=== PATIENT | female | born 1935 | race Caucasian/White ===

== ENCOUNTER 2017-03-09 02:31 | Inpatient (IN) | payer MEDICARE, OTHER ==
[~2017-03-09] VITALS: Ht 149.9 cm; Wt 35.0 kg
[2017-03-09] MEDS ORDERED: LISI40TAB PO (02:48)
[2017-03-09] MEDS ORDERED: ALBU17IN PO (02:48)
[2017-03-09] MEDS ORDERED: BISO5TAB5 PO (02:48)
[2017-03-09] MEDS ORDERED: SPIR1CAP INH (02:48)
[2017-03-09 02:49] LABS: ABG BASE EXCESS -3.7 (-2.0-2.0); ABG HCO3 24.7 MEQ/L (22.0-26.0); ABG PARTIAL PRESSURE CO2 59.1 mmHg (35.0-45.0); ABG STANDARD HCO3 21.4 MEQ/L (22.0-26.0); ABG TOTAL CO2 26.5 MEQ/L (23.0-31.0)
[2017-03-09] MEDS ORDERED: SIMV40TA2 PO (02:49)
[2017-03-09 02:52] LABS: ABG pH (ARTERIAL) 7.239 UNITS (7.350-7.450)
[2017-03-09] MEDS ORDERED: dexameTHASONE 20 MG/5 ML VIAL (J1100) IV ONE (03:00)
[2017-03-09 03:03] LABS: BASO # 0.1 K/mm3 (0.0-0.2); BASO % 0.7 % (0.0-1.0); EOS # 0.2 K/mm3 (0.0-0.50); EOS % 2.5 % (0.0-3.0); LARGE UNSTAINED CELL # 0.1 K/mm3 (0.0-0.4); LARGE UNSTAINED CELL % 1.5 % (0.0-4.0); LYMPH # 2.1 K/mm3 (1.5-4.5); LYMPH % 21.8 % (24.0-44.0); MEAN CORPUSCULAR HEMOGLOBIN 31.3 pg (27.0-33.0); MEAN CORPUSCULAR HGB CONC 32.6 g/dl (32.0-36.5); MEAN CORPUSCULAR VOLUME 95.9 fl (80.0-96.0); MONO # 0.5 K/mm3 (0.0-0.8); NEUTROPHILS # 6.3 K/mm3 (1.8-7.7); NEUTROPHILS % 68.6 % (36.0-66.0); PLATELET COUNT, AUTOMATED 212 k/mm3 (150-450); RED CELL DISTRIBUTION WIDTH 13.1 % (11.5-14.5); WHITE BLOOD COUNT 9.2 K/mm3 (4.0-10.0)
[2017-03-09] MEDS: LEVALBUTEROL 1.25 MG/0.5 ML CONCENTRATE NEB INH SCH ×3 (03:09→03:34)
[2017-03-09 03:10] LABS: CREATININE FOR GFR 1.05 MG/DL (0.55-1.02); GLOMERULAR FILTRATION RATE 53.5 (>32)
[2017-03-09 03:19] LABS: POTASSIUM SERUM 5.2 MEQ/L (3.5-5.1)
[2017-03-09] MEDS ORDERED: BISACODYL 5 MG TAB PO PRN (05:30)
[2017-03-09] MEDS ORDERED: ACETAMINOPHEN TAB 650MG DOSE (2X325MG) PO PRN (05:30)
[2017-03-09] MEDS ORDERED: ALBUTEROL 90 MCG/ACT 8GM HFA INHALER INH PRN (06:00)
[2017-03-09] MEDS: AZITHROMYCIN INJ 500 MG, VIAL MATE ADAPTER 1 EACH in D5W 250 ML IV SCH (07:24)
[2017-03-09] MEDS: TIOTROPIUM INHALER/CAPSULE (SPIRIVA) INH SCH (08:37)
[2017-03-09] MEDS: IPRATROPIUM 0.5MG/ALBUTEROL 2.5MG INH SOL UD 3ML (DUONEB)(J7620) NEB SCH ×3 (08:37→19:43)
--- NOTE | 2017-03-09 08:49 | HPEPDOC ---
General Date of Admission Mar 09, 2017 at 02:33 Primary Care Physician: YOU DOE MD [facility] Other Providers Guest Advisor: Dr. Paul Barcenas Attending Physician: TEN QUINTERO DO Chief Complaint The patient is a 81-year-old female admitted with a reason for visit of Acute Respiratory Failure With Hypoxia. Source: Patient History of Present Illness CHIEF COMPLAINT: shortness of breath HISTORY OF PRESENT ILLNESS: Ms. Up is an 81 yo F with a PMH of emphysema/COPD, HTN, HLD, tobacco use disorder, moderate to severe mitral valve regurgitation, possible past inferior- lateral FL/hypotension, cardiogenic shock, and syncopal event (Dr. Luna's note from 07/11/08). In addition, an echocardiogram done 07/11/08 showed systolic and diastolic heart failure. Patient presented to [facility] ED early Sunday morning for difficulty breathing. Around 12:30 AM or 1 AM, she got up to go to the bathroom, felt hot, could not breathe right. She felt scared and that's when she called 9-1-1 and was transported by EMS to the ED. Yesterday, patient states she went to Dr. Doe's (PCP) office and he had prescribed her oxygen to use at home. States at 7:30 PM, oxygen was delivered to her home. She then proceeded to use the oxygen and used it even when she was sleeping. States the last time she was given oxygen to use at home was "8 years ago" when she was last hospitalized and states that's when she was told she had COPD. States in the hospital she was placed on oxygen, then continued to use oxygen at home for [address] Barcenas evaluated her and took her off the oxygen and stated she was okay. In addition, patient admits to a bit of an on and off chronic cough that is not worse. Denies fevers, chills, dizziness, headache, blurred vision, night sweats, weight loss/gain, runny nose, sore throat, chest pain, dysphagia, abdominal pain, nausea, vomiting, diarrhea, constipation. She admits to a dry throat, feeling a bit dehydrated, to white phlegm, and to SOB. The phlegm production was not more than normal. In the ED, patient's VS were significant for a pulse of 120 (subsequently 116, 115, 114, 119), BP 187/85 (most recent 131/58), pulse ox: 99% on non-rebreather , 95% O2 sat on 2 liters nasal cannula and 95% FiO2, RR of 32 (subsequently 30, 24). She was administered 10 mg IV dexamethasone and given 1.25 mg levalbuterol q15 minutes inhalation. Labs: CBC was unremarkable. ABG showed: pH: 7.239, pCO2 59.1, pO2: 128, base excess: -3.7, serum CO2: 31. ABG findings show respiratory acidosis and CO2 retention. BMP showed K 5.2, BUN 33, Cr: 1.05, fasting glucose : 119. Blood cx are pending. Portable CXR showed hyperinflation of lungs with flattening of the diaphragm as well as RLL blunting. PAST MEDICAL HISTORY: Emphysema/COPD HTN HLD Tobacco use disorder Possible past inferior-lateral FL/hypotension/Cardiogenic shock/Syncopal event ( Dr. Luna's note from 07/11/08) Moderate to severe mitral valve regurgitation on Echocardiogram 07/11/08 Systolic and diastolic heart failure: LVEF of 58% on Echocardiogram 07/11/08 Admits to being hard of hearing PAST SURGICAL HISTORY: Cataract Surgery 8-9 years ago Fiberoptic Bronchoscopy with Transbronchoscopic Washing, Brushing, and Biopsy *Possible Cardiac Catheterization at [facility] in [place] for Emergency Cath with possible PCI after a presumed acute inferolateral FL in 2007--it was stated that patient had arrangements by Dr. Luna to be transferred there for a Cath. However, there is no documentation after this in our EMR to confirms she had this procedure. MEDICATIONS: Please see below. ALLERGIES: No known allergies. SOCIAL HISTORY: Is Pakistani Smoking 1 PPD since 27 years old until 3-4 years ago. Now smoke 3 or 4 cigarettes/day since the last 3-4 years. Has not quit. EtOH: none now. Used to drink during the holidays such as a glass of wine socially. No illicit drug use. Lives at home alone. : was in the [employer] and 2002. No pets. 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 Denies exposure to any toxins or chemicals to her lungs. FAMILY HISTORY: Mother: at 88 years old, stomach cancer Father: , pneumonia 91 yo Brother: unknown medical hx 64 yo Sister: brain tumor surgery after which she was in a coma for 6 months and eventually 24 yo Brother: in a motorcycle accident Has 2 brothers and 1 sister total CODE STATUS: DNR/DNI REVIEW OF SYSTEMS: All ROS are negative except for those as stated above in the HPI. PHYSICAL EXAMINATION: Please see below for full vitals and PE. LABORATORY DATA: Please see above in HPI for significant labs. Please see below for full labs. MICROBIOLOGY: Blood cx pending. Sputum cx pending. RADIOLOGY: CXR: hyperinflation of lungs with flattening of the diaphragm as well as RLL blunting. (Personally interpreted by me). Follow up PA and Lateral CXR this AM pending. ASSESSMENT: 81 yo F is presenting for acute hypoxic respiratory failure secondary to acute on chronic COPD exacerbation. PLAN: Acute Hypoxic Respiratory Failure 2/2 Acute on Chronic COPD Exacerbation: Admit to MED/SURG unit to Dr. Lopes's service. Continue duonebs q6h and q2h PRN SOB/ wheezing. Will give solumedrol 80 mg q12 hours, zithromax 500 mg q24h. Incentive spirometry. Continue home medications: spiriva, proventil Hfa inhaler q4h PRN SOB. Providing some NS IVF as patient appears a bit dehydrated. Consider adding mucinex to help expectorate secretions. HTN: Stable. Continue lisinopril, bisoprolol. HLD: continue simvastatin. Tobacco use disorder: Counseled on smoking cessation and education provided Systolic and diastolic heart failure with LVEF of 58% on Echocardiogram 07/11/08 and possible hx of inferolateral FL in 2007: Stable. No edema or crackles. Continue to monitor clinically. Continue simvastatin, bisoprolol, lisinopril. Consider aspirin. PT Evaluation: check ambulation and to check for desaturations when ambulation. DVT ppx: lovenox 30 mg SC daily due to advanced age DNR/DNI Immunizations as per protocol Disposition: Admit for observation and anticipate discharge in <24 hours. My preceptor for this patient encounter was Dr. Ten Quintero, and was physically present in the building during the encounter and was fully available. As needed, all aspects of the patient interview, examination, medical decision making process, and medical care plan development were reviewed and approved by the preceptor. Preceptor is aware and concurs with the plan as stated in the body of this note and will attest to such by his/her cosignature. Home Medications Scheduled Bisoprolol Fumarate (Bisoprolol Fumarate) 5 Mg Tab, 2.5 MG PO DAILY, (Reported) Lisinopril (Lisinopril) 40 Mg Tab, 40 MG PO DAILY, (Reported) Simvastatin - High Dose (Simvastatin) 40 Mg Tab, 40 MG PO QHS, (Reported) Tiotropium [place] Monohydrate (Spiriva Handihaler) 18 Mcg Cap, 18 MCG INH DAILY , (Reported) Scheduled PRN Albuterol Sulfate (Ventolin Hfa) 200 Puff/8 Gm Aers, 2 PUFFS PO Q4H PRN for SHORTNESS OF BREATH, (Reported) Allergies Coded Allergies: No Known Allergies (Unverified , 03/09/17) Physical Examination General Exam: Positive: Alert, Cooperative, No Acute Distress, Other (pleasant elderly female who is very thin and cachectic appearing) Eye Exam: Positive: Conjunctiva & lids normal ENT Exam: Positive: Atraumatic, Pharynx Normal, Tongue Midline, Other ENT ( tongue dry and not moist, lips very dry. ), Negative: Pharyngeal Edema Neck Exam: Positive: Supple, Negative: JVD, thyromegaly, Lymphadenopathy Chest Exam: Positive: Wheezing, Diminished, Negative: Rales, Rhonchi Heart Exam: Positive: Tachycardic, Regular Rhythm, Normal S1, Normal S2 Abdomen Exam: Positive: Normal bowel sounds, Soft, Other (very thin abdomen), Negative: Tenderness, Hepatospenomegaly Extremity Exam: Positive: Normal pulses, Negative: Clubbing, Cyanosis, Edema Skin Exam: Positive: Nl turgor and temperature, Negative: Rash, Breakdown, Lesion Neuro Exam: Positive: Normal Speech, Sensation Intact, Other (No focal neurologic deficits appreciated bilaterally.) Psych Exam: Positive: Mental status NL, Mood NL, Oriented x 3 Vital Signs Vital Signs Date Time Temp Pulse Resp B/P (MAP) Pulse Ox O2 Delivery O2 Flow Rate FiO2 03/09/17 07:21 98.3 03/09/17 07:09 105 18 96 Nasal Cannula 2.0 03/09/17 02:53 95 Laboratory Data Labs 24H Laboratory Tests 2 03/09/17 02:42: Blood Gas Bicarbonate Standard 21.4L, Arterial Blood pH 7.239*L, Arterial Blood Partial Pressure CO2 59.1H, Arterial Blood Partial Pressure O2 128.0H, Arterial Blood Total CO2 26.5, Arterial Blood HCO3 24.7, Arterial Blood Base Excess -3.7L , Arterial Blood Oxygen Saturation 98.5 03/09/17 02:43: White Blood Count 9.2, Red Blood Count 4.52, Hemoglobin 14.1, Hematocrit 43.3, Mean Corpuscular Volume 95.9, Mean Corpuscular Hemoglobin 31.3, Mean Corpuscular Hemoglobin Concent 32.6, Red Cell Distribution Width 13.1, Platelet Count 212, Neutrophils (%) (Auto) 68.6H, Lymphocytes (%) (Auto) 21.8L, Monocytes (%) (Auto) 5.0, Eosinophils (%) (Auto) 2.5, Basophils (%) (Auto) 0.7, Neutrophils # (Auto) 6.3, Lymphocytes # (Auto) 2.1, Monocytes # (Auto) 0.5, Eosinophils # (Auto) 0.2, Basophils # (Auto) 0.1, Large Unclassified Cells % 1.5 , Large Unclassified Cells # 0.1, Anion Gap 7L, Glomerular Filtration Rate 53.5 , Blood Urea Nitrogen 33H, Creatinine 1.05H, Sodium Level 144, Potassium Level 5.2H, Chloride Level 106, Carbon Dioxide Level 31, Calcium Level 9.0 CBC/BMP Laboratory Tests 03/09/17 02:43 Red Blood Count 4.52, Mean Corpuscular Volume 95.9, Mean Corpuscular Hemoglobin 31.3, Mean Corpuscular Hemoglobin Concent 32.6, Red Cell Distribution Width 13.1 , Neutrophils (%) (Auto) 68.6 H, Lymphocytes (%) (Auto) 21.8 L, Monocytes (%) ( Auto) 5.0, Eosinophils (%) (Auto) 2.5, Basophils (%) (Auto) 0.7, Neutrophils # ( Auto) 6.3, Lymphocytes # (Auto) 2.1, Monocytes # (Auto) 0.5, Eosinophils # (Auto ) 0.2, Basophils # (Auto) 0.1, Calcium Level 9.0 Microbiology Microbiology 03/09/17 Blood Culture, Received Pending Plan / VTE VTE Prophylaxis Ordered?: Yes (lovenox SC) JUANITO WELDONME-1 Mar 09, 2017 08:36
--- NOTE | 2017-03-09 08:53 | REP ---
Chest two views HISTORY: Dyspnea Comparison: 10/17 AM 03/09/2017 The lungs are hyperinflated. An increase in interstitial markings is present in the lungs. The heart is normal in size. The pulmonary vasculature is normal in appearance. The bony structure is intact. IMPRESSION: COPD. Signed by Cristian Mendez MD 03/09/2017 08:44 A
--- NOTE | 2017-03-09 09:06 | REP ---
Chest one-view HISTORY: Dyspnea Comparison: 05/08/2016 The lungs are hyperinflated. An increase in interstitial markings is present in the lung. The heart is normal in size. The pulmonary vasculature is normal in appearance. Impression: COPD. Signed by Cristian Mendez MD 03/09/2017 08:43 A
[2017-03-09] MEDS: LISINOPRIL 40 MG TAB PO SCH (09:15)
[2017-03-09] MEDS: BISOPROLOL FUMARATE 5 MG TAB PO SCH (09:16)
[2017-03-09] MEDS: ENOXAPARIN 30 MG/0.3 ML SYR (J1650) SC SCH (09:17)
[2017-03-09] MEDS: PANTOPRAZOLE 40MG INJ (PROTONIX) (C9113) IV SCH (09:17)
[2017-03-09] MEDS: methylPREDNISolone INJ 125 MG/2 ML VIAL (J2930) IV SCH ×2 (09:17→20:50)
[2017-03-09] MEDS: NS 1,000 ML IV SCH ×2 (09:18→17:11)
[2017-03-09 14:15] VITALS: BP 145/63
[2017-03-09] MEDS: IPRATROPIUM 0.5MG/ALBUTEROL 2.5MG INH SOL UD 3ML (DUONEB)(J7620) NEB PRN (15:10)
[2017-03-09 18:00] VITALS: BP 135/64
[2017-03-09] MEDS: SIMVASTATIN 40 MG TAB PO SCH (20:40)
[2017-03-09 22:00] VITALS: BP 121/59
[2017-03-10] MEDS: IPRATROPIUM 0.5MG/ALBUTEROL 2.5MG INH SOL UD 3ML (DUONEB)(J7620) NEB SCH ×4 (00:18→19:47)
[2017-03-10 02:00] VITALS: BP 114/56
[2017-03-10] MEDS: AZITHROMYCIN INJ 500 MG, VIAL MATE ADAPTER 1 EACH in D5W 250 ML IV SCH (05:28)
[2017-03-10 06:00] VITALS: BP 107/57
[2017-03-10 06:22] LABS: BASO % 0.1 % (0.0-1.0); LARGE UNSTAINED CELL % 0.3 % (0.0-4.0); LYMPH # 0.3 K/mm3 (1.5-4.5); LYMPH % 2.2 % (24.0-44.0); MEAN CORPUSCULAR HEMOGLOBIN 31.3 pg (27.0-33.0); MEAN CORPUSCULAR HGB CONC 32.2 g/dl (32.0-36.5); MEAN CORPUSCULAR VOLUME 97.3 fl (80.0-96.0); MONO # 0.3 K/mm3 (0.0-0.8); MONO % 2.4 % (0.0-5.0); NEUTROPHILS # 10.7 K/mm3 (1.8-7.7); PLATELET COUNT, AUTOMATED 141 k/mm3 (150-450); RED CELL DISTRIBUTION WIDTH 13.1 % (11.5-14.5); WHITE BLOOD COUNT 11.3 K/mm3 (4.0-10.0)
[2017-03-10 06:30] LABS: ANION GAP 7 MEQ/L (8-16); BLOOD UREA NITROGEN 32 MG/DL (7-18); CALCIUM LEVEL 8.7 MG/DL (8.8-10.2); CARBON DIOXIDE LEVEL 27 MEQ/L (21-32); CHLORIDE LEVEL 110 MEQ/L (98-107); CREATININE FOR GFR 0.93 MG/DL (0.55-1.02); GLOMERULAR FILTRATION RATE > 60.0 (>32); GLUCOSE, FASTING 166 MG/DL (83-110); MAGNESIUM LEVEL 2.1 MG/DL (1.8-2.4); POTASSIUM SERUM 4.7 MEQ/L (3.5-5.1); SODIUM LEVEL 144 MEQ/L (136-145)
--- NOTE | 2017-03-10 09:37 | IPN ---
DATE: 03/09/2017 SUBJECTIVE: The patient seen and examined in the intensive care unit (ICU), holding in the emergency room. The patient is being admitted for chronic obstructive pulmonary disease (COPD) exacerbation. Per the patient, the patient has been complaining about worsening breathing from increased cough since 4 to 5 days ago. Before the admission, the patient was seen by the primary care provider and the patient was given oxygen and the patient used it for one day. However, it did not benefit the patient's breathing. The patient started having acute worsening of the breathing in the middle of rest. That was the reason by she was brought to the emergency room yesterday shortly after midnight. OBJECTIVE: VITAL SIGNS: Temperature is 98, pulse is 105, respirations 18, blood pressure 107/57, pulse oximetry 96% on 2 liters nasal cannula. GENERAL: No signs of acute distress. Alert and oriented times three. HEENT: Normocephalic, atraumatic. Extraocular muscles grossly intact. CARDIOVASCULAR: Positive S1, S2. Positive heart murmurs. LUNGS: Decreased breath sounds. Positive wheezes. I cannot appreciate any sign crackles. ABDOMEN: Soft, nontender, nondistended. Bowel sounds are present. EXTREMITIES: No edema. No sign of cyanosis. LABORATORY DATA: The most recent lab was done around 3 a.m. showed white blood count (WBC) of 9.2, hemoglobin 14.1, hematocrit 43.3, platelet count 212. Sodium is 144, potassium is 5.2, chloride is 106, carbon dioxide 31, BUN 33, creatine 1.05, glomerular filtration rate (GFR) is 53.5. Fasting glucose is 119, calcium is 9. ASSESSMENT AND PLAN: 1. Acute respiratory distress most likely secondary to chronic obstructive pulmonary disease (COPD) exacerbation. The patient is receiving the IV Solu-Medrol. The patient also had nebulizer treatment. She started to show improvement of the breathing. The patient will be monitored on telemetry. 2. Chronic obstructive pulmonary disease (COPD) exacerbation. Treatment as listed above. 3. Hypertension. The patient's blood pressure is in the satisfactory range. Continue to monitor. The patient is bisoprolol, Lisinopril. 4. Moderate to severe mitral severe mitral regurgitation. Echocardiogram in July 2008. 5. History of systolic and diastolic heart failure. Continue to monitor the patient's inpatient and output and daily weight. At home, the patient is not taking any diuretic. Will continue to monitor the patient's fluid status. 6. Hyperlipidemia on statin. 7. Deep vein thrombosis (DVT) prophylaxis on Lovenox.
[2017-03-10] MEDS: PANTOPRAZOLE 40MG INJ (PROTONIX) (C9113) IV SCH (09:57)
[2017-03-10] MEDS: ENOXAPARIN 30 MG/0.3 ML SYR (J1650) SC SCH (09:57)
[2017-03-10] MEDS: BISOPROLOL FUMARATE 5 MG TAB PO SCH (09:59)
[2017-03-10] MEDS: LISINOPRIL 40 MG TAB PO SCH (09:59)
[2017-03-10 10:00] VITALS: BP 125/58
[2017-03-10] MEDS: methylPREDNISolone INJ 125 MG/2 ML VIAL (J2930) IV SCH ×2 (10:00→21:56)
[2017-03-10] MEDS: TIOTROPIUM INHALER/CAPSULE (SPIRIVA) INH SCH (12:00)
[2017-03-10] MEDS: NS 1,000 ML IV SCH (12:26)
[2017-03-10 14:00] VITALS: BP 159/71
--- NOTE | 2017-03-10 16:55 | IPN ---
DATE: 03/10/2017 SUBJECTIVE: The patient is seen and examined in the room today. Still complaining about significant cough and also wheezes. Still requiring oxygen support. OBJECTIVE: VITAL SIGNS: Temperature 97.4, pulse is 67, respirations 16, blood pressure 107/57, pulse oximetry 92% with two liters nasal cannula. GENERAL: Mild distress secondary to tachypnea, with accessory muscle use. Is alert and oriented times three. HEART: Positive S1, S2. Regular rate. LUNGS: Positive wheezes throughout. Decreased breath sounds. Poor respiratory effort. I cannot appreciate any significant crackles. ABDOMEN: Soft, nontender, nondistended. Bowel sounds present. No rebound, no guarding. EXTREMITIES: No edema. No sign of cyanosis. LABORATORY DATA: WBC is 11.3, hemoglobin 12.1, hematocrit 37.5, platelet count 141. Sodium 144, potassium 4.7, chloride 110, carbon dioxide 27, BUN 32, creatinine 0.93, GFR greater than 60, fasting glucose is 166. Calcium 8.7, magnesium 2.1. ASSESSMENT AND PLAN: 1. Acute respiratory distress, most likely secondary to chronic obstructive pulmonary disease (COPD) exacerbation. The patient has been receiving azithromycin. The patient is on intravenous (IV) steroids. 2. Hypertension. On Zebeta and lisinopril. 3. History of systolic and diastolic congestive heart failure. No sign of fluid overload. At the home, the patient is not taking any diuretic. Continue to monitor fluid status. 4. Deep venous thrombosis (DVT) prophylaxis. The patient on Lovenox.
[2017-03-10 18:00] VITALS: BP 140/64
[2017-03-10] MEDS: SIMVASTATIN 40 MG TAB PO SCH (21:56)
[2017-03-10 22:00] VITALS: BP 131/60
[2017-03-11] VITALS (22 sets, daily range): BP systolic 113–195; BP diastolic 58–99; O2SAT 94–96
[2017-03-11] MEDS: NS 1,000 ML IV SCH (01:14)
[2017-03-11] MEDS: IPRATROPIUM 0.5MG/ALBUTEROL 2.5MG INH SOL UD 3ML (DUONEB)(J7620) NEB SCH ×2 (02:00→08:25)
[2017-03-11] MEDS: IPRATROPIUM 0.5MG/ALBUTEROL 2.5MG INH SOL UD 3ML (DUONEB)(J7620) NEB PRN ×3 (05:38→11:21)
[2017-03-11 05:47] LABS: ABG BASE EXCESS -4.7 (-2.0-2.0); ABG HCO3 27.1 MEQ/L (22.0-26.0); ABG PARTIAL PRESSURE O2 180.4 mmHg (75.0-100.0); ABG STANDARD HCO3 20.7 MEQ/L (22.0-26.0); ABG TOTAL CO2 29.8 MEQ/L (23.0-31.0)
[2017-03-11 05:51] LABS: ABG pH (ARTERIAL) 7.108 UNITS (7.350-7.450)
[2017-03-11 05:52] LABS: ABG PARTIAL PRESSURE CO2 87.6 mmHg (35.0-45.0)
[2017-03-11 06:14] LABS: LARGE UNSTAINED CELL # 0.1 K/mm3 (0.0-0.4); LARGE UNSTAINED CELL % 0.3 % (0.0-4.0); LYMPH # 1.1 K/mm3 (1.5-4.5); LYMPH % 4.9 % (24.0-44.0); MEAN CORPUSCULAR HEMOGLOBIN 31.7 pg (27.0-33.0); MONO # 0.7 K/mm3 (0.0-0.8); MONO % 3.1 % (0.0-5.0); NEUTROPHILS # 19.8 K/mm3 (1.8-7.7); NEUTROPHILS % 91.6 % (36.0-66.0); PLATELET COUNT, AUTOMATED 230 k/mm3 (150-450); RED CELL DISTRIBUTION WIDTH 13.4 % (11.5-14.5); WHITE BLOOD COUNT 21.6 K/mm3 (4.0-10.0)
[2017-03-11] MEDS ORDERED: IPRATROPIUM 0.5MG/ALBUTEROL 2.5MG INH SOL UD 3ML (DUONEB)(J7620) NEB ONE (06:15)
[2017-03-11] MEDS ORDERED: methylPREDNISolone INJ 125 MG/2 ML VIAL (J2930) IV ONE (06:15)
[2017-03-11 06:31] LABS: ANION GAP 8 MEQ/L (8-16); BLOOD UREA NITROGEN 25 MG/DL (7-18); CALCIUM LEVEL 8.5 MG/DL (8.8-10.2); CARBON DIOXIDE LEVEL 26 MEQ/L (21-32); CHLORIDE LEVEL 113 MEQ/L (98-107); CREATININE FOR GFR 0.91 MG/DL (0.55-1.02); GLOMERULAR FILTRATION RATE > 60.0 (>32); GLUCOSE, FASTING 183 MG/DL (83-110); MAGNESIUM LEVEL 2.4 MG/DL (1.8-2.4); POTASSIUM SERUM 5.1 MEQ/L (3.5-5.1); SODIUM LEVEL 147 MEQ/L (136-145)
[2017-03-11 07:16] LABS: ABG BASE EXCESS -2.4 (-2.0-2.0); ABG HCO3 26.3 MEQ/L (22.0-26.0); ABG PARTIAL PRESSURE O2 93.2 mmHg (75.0-100.0); ABG STANDARD HCO3 22.5 MEQ/L (22.0-26.0); ABG TOTAL CO2 28.2 MEQ/L (23.0-31.0)
[2017-03-11 07:18] LABS: ABG pH (ARTERIAL) 7.238 UNITS (7.350-7.450)
[2017-03-11] MEDS: AZITHROMYCIN INJ 500 MG, VIAL MATE ADAPTER 1 EACH in D5W 250 ML IV SCH (07:57)
[2017-03-11] MEDS: BUDESONIDE 0.5 MG/2 ML INHALATION SUSPENSION INH SCH ×2 (08:00→18:07)
[2017-03-11] MEDS ORDERED: FUROSEMIDE 100 MG/10 ML VIAL (J1940) IV ONE (08:00)
[2017-03-11] MEDS: FORMOTEROL FUMARATE 20 MCG/2 ML INHALATION SOLUTION (PERFOROMIST) INH SCH ×2 (08:00→18:07)
[2017-03-11] MEDS: methylPREDNISolone INJ 125 MG/2 ML VIAL (J2930) IV SCH (08:16)
[2017-03-11] MEDS ORDERED: PREVNAR 13 VACCINE SYRINGE (CPT CODE:90670) IM SCH (09:00)
[2017-03-11] MEDS: ENOXAPARIN 30 MG/0.3 ML SYR (J1650) SC SCH (09:38)
[2017-03-11] MEDS: PANTOPRAZOLE 40MG INJ (PROTONIX) (C9113) IV SCH (09:38)
[2017-03-11] MEDS: BISOPROLOL FUMARATE 5 MG TAB PO SCH (09:39)
[2017-03-11] MEDS: LISINOPRIL 40 MG TAB PO SCH (09:40)
--- NOTE | 2017-03-11 10:54 | REP ---
AP PORTABLE CHEST: 03/11/2017. Comparison: 03/09/2017, 05/08/2016, 05/14/2015. Clinical history: Dyspnea. Findings: Significant hyperinflation with flattening of the diaphragms, bullous emphysematous changes and COPD. There is a rotation of the chest towards the left. There is now evident interstitial edema with vascular congestion superimposed on that fibrosis. Karie B lines are seen diffusely. Small effusion suggested. Tortuous calcified aorta intact. Impression: 1. New superimposed pulmonary edema with small effusions. 2. Underlying fibrosis, COPD and a tortuous calcified aorta, unchanged. Signed by Pal Munguia MD 03/11/2017 05:58 P
[2017-03-11 11:21] LABS: ABG BASE EXCESS 0.5 (-2.0-2.0); ABG HCO3 28.3 MEQ/L (22.0-26.0); ABG PARTIAL PRESSURE CO2 59.2 mmHg (35.0-45.0); ABG PARTIAL PRESSURE O2 72.2 mmHg (75.0-100.0); ABG STANDARD HCO3 24.9 MEQ/L (22.0-26.0); ABG TOTAL CO2 30.1 MEQ/L (23.0-31.0); ABG pH (ARTERIAL) 7.297 UNITS (7.350-7.450)
[2017-03-11] MEDS: TIOTROPIUM INHALER/CAPSULE (SPIRIVA) INH SCH (11:21)
[2017-03-11] MEDS ORDERED: FUROSEMIDE 40 MG/4 ML VIAL (J1940) IV SCH (13:00)
--- NOTE | 2017-03-11 13:10 | IPN ---
DATE: 03/11/2017 SUBJECTIVE: The patient is seen and examined in the intensive care unit (ICU) today. Yesterday night at approximately 5:30 a.m., there was a rapid response for the patient. The patient had acute exacerbation of breathing and the patient was found to have a severe respiratory alkalosis. An urgent bedside chest x-ray was performed and the patient was transferred to the ICU for BiPap. During the morning rounds, the patient still had significant respiratory distress with accessory muscle use. The patient also has persistent tachycardia, but she is alert and awake and able to answer questions. OBJECTIVE: Vital Signs: Temperature 96.9, pulse 133, blood pressure 163/72, pulse oximetry 98% on BiPap. General: Moderate distress with tachycardia. Alert and oriented times three. Able to follow commands. HEENT: Positive accessory muscle use. Normocephalic, atraumatic. Cardiovascular: Positive S1, S2. Tachycardia. Lungs: Decreased breath sounds. I cannot appreciate any wheezes. I cannot any significant crackles Abdomen: Soft. Nontender. Nondistended. Bowel sounds present. No rebound. No guarding. Extremities: No edema. No cyanosis. LABORATORY DATA: WBC 21.6, hemoglobin 13.2, hematocrit 41.3 and platelet count 230. Sodium 147, potassium 5.1, chloride 113, carbon dioxide 26, BUN 25, creatinine 0.91, GFR greater than 60, fasting glucose 183, calcium 8.5, magnesium 2.4. BNP 788. Troponin I is 0.12. ASSESSMENT AND PLAN: 1. Acute on chronic respiratory distress. The patient is admitted for COPD exacerbation and now patient also has congestive heart failure exacerbation. The patient has been transferred to the ICU and started on BiPap for the respiratory acidosis. Will consult pulmonology for assistance. The patient will also receive IV Lasix diuresis. One stat order was placed and the patient will be on every 8 hour regimen with holding parameter. 2. Chronic obstructive pulmonary disease exacerbation, on steroids and breathing treatments and azithromycin. 3. 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 The patient has started to receive IV Lasix diuresis. Continue monitoring input and output and daily weight. 4. Hypertension. The patient is on lisinopril and Zebeta. 5. Deep vein thrombosis (DVT) prophylaxis, on Lovenox.
[2017-03-11] MEDS: FUROSEMIDE 40 MG/4 ML VIAL (J1940) IV SCH (16:38)
[2017-03-11] MEDS: SIMVASTATIN 40 MG TAB PO SCH (20:08)
[2017-03-11] MEDS ORDERED: methylPREDNISolone INJ 40 MG/1 ML VIAL (J2920) IV SCH (21:00)
--- NOTE | 2017-03-11 21:57 | ECGEPIP ---
Stationary ECG Study [facility] Test Date: 2017-03-11 Pat Name: KEVIN CARDONA Department: 4PAV Room: S9460-33 Gender: F Resaw Operator: NANCY WRAPPER STEMMER HAND : 1935 Requested By: MARILYNN Calderon Order Number: [id number] Reading MD: Paul Luna Measurements Intervals [place] Rate: 145 P: LA: 0 QRS: 105 QRSD: 62 T: 79 QT: 252 QTc: 392 Interpretive Statements Probably sinus tachycardia. Poor R-wave progression MARKED RIGHT AXIS DEVIATION Nonspecific ST-T abnormalities No prior ECG available for comparison at the time of interpretation. Electronically Signed On 03-11-2017 21:57:22 EDT by Paul Luna
[2017-03-12] VITALS (8 sets, daily range): BP systolic 117–158; BP diastolic 58–76; O2SAT 87–92
[2017-03-12] MEDS: FUROSEMIDE 40 MG/4 ML VIAL (J1940) IV SCH ×3 (00:12→17:00)
[2017-03-12 04:47] LABS: MEAN CORPUSCULAR HEMOGLOBIN 32.7 pg (27.0-33.0); MEAN CORPUSCULAR HGB CONC 35.3 g/dl (32.0-36.5); RED CELL DISTRIBUTION WIDTH 13.1 % (11.5-14.5); WHITE BLOOD COUNT 12.1 K/mm3 (4.0-10.0)
[2017-03-12 04:55] LABS: CALCIUM LEVEL 8.9 MG/DL (8.8-10.2); CREATININE FOR GFR 1.1 MG/DL (0.55-1.02); GLOMERULAR FILTRATION RATE 50.7 (>32)
[2017-03-12 04:58] LABS: MEAN CORPUSCULAR VOLUME 92.5 fl (80.0-96.0)
[2017-03-12 05:10] LABS: POTASSIUM SERUM 3.3 MEQ/L (3.5-5.1)
[2017-03-12] MEDS: AZITHROMYCIN INJ 500 MG, VIAL MATE ADAPTER 1 EACH in D5W 250 ML IV SCH (05:28)
--- NOTE | 2017-03-12 07:22 | CR ---
DATE OF CONSULTATION: 03/11/2017 SUBJECTIVE: I was called to evaluate the patient rapidly during a rapid assessment due to her becoming acutely hypoxic feeling like she was having difficulty breathing and a SPO2 that dropped into the low 70s. Upon entering the room, the patient did appear to be struggling to breathe. I could hear an audible expiratory wheeze. She did appear to be tripoding while trying to breathe. She was placed on a non-rebreather at 15 liters. Oxygen saturations did come up into the upper 80s to lower 90s. However, she was having difficulty with completing sentences due to extreme shortness of breath. PHYSICAL EXAMINATION: Temperature 98.5, pulse 96, respiratory rate is 20. Shallow breathing is noted. BP 131/60, SpO2 currently is 87% on 15 liters. General: The patient appears to be in some distress, retractions noted of the sternocleidomastoid bilaterally. She is tripoding. Lungs do have diminished bibasilar breath sounds with faint expiratory wheeze. Heart: Regular rate and rhythm. However, she now does appear to be tachycardiac with a ventricular rate in 140s. 12-lead EKG does show a ventricular rate of 145. The electronic reading did mention atrial flutter. However, I appreciate P-waves for every QRS. This may be a rapid sinus tachycardia. At any rate, her pH was 7.108 and pCO2 is 87.6. She clearly does appear to be retaining carbon dioxide. She has received two nebulizer treatments at this point. I did review her Medical orders for life sustaining treatment (MOLST) with her. She is a DO NOT RESUSCITATE/DO NOT INTUBATE but she does wish to have a trial of BiPAP. ASSESSMENT/PLAN: 1. Acute hypoxic respiratory failure with deterioration of oxygen saturations. She will be transferred to the intensive care unit (ICU) for trial of BiPAP. Will continue with nebulizers as outlined. She is getting a dose of her Solu-Medrol currently for her morning dose and we will go ahead and do cardiac markers as well and she has a BMP that is ordered for this morning. Her chest x-ray does not show any cardiomegaly. There does not appear to be any pleural effusions. She does have flattened diaphragms and does have findings more consistent with emphysema. No acute findings or changes from her prior chest x-ray on 03/09/2017.
[2017-03-12] MEDS: FORMOTEROL FUMARATE 20 MCG/2 ML INHALATION SOLUTION (PERFOROMIST) INH SCH ×2 (07:43→19:43)
[2017-03-12] MEDS: BUDESONIDE 0.5 MG/2 ML INHALATION SUSPENSION INH SCH ×2 (07:43→19:43)
[2017-03-12] MEDS: TIOTROPIUM INHALER/CAPSULE (SPIRIVA) INH SCH (07:45)
[2017-03-12] MEDS: KCL 10MEQ IN 100ML SWI (KRUN) 10 MEQ in APPROPRIATE DILUENT 1 EA IV SCH ×4 (08:44→10:21)
[2017-03-12] MEDS: PANTOPRAZOLE 40MG INJ (PROTONIX) (C9113) IV SCH (08:47)
[2017-03-12] MEDS: ENOXAPARIN 30 MG/0.3 ML SYR (J1650) SC SCH (08:48)
[2017-03-12] MEDS: methylPREDNISolone INJ 40 MG/1 ML VIAL (J2920) IV SCH (08:48)
[2017-03-12] MEDS: BISOPROLOL FUMARATE 5 MG TAB PO SCH (08:50)
[2017-03-12] MEDS: LISINOPRIL 40 MG TAB PO SCH (08:50)
[2017-03-12] MEDS: ALBUTEROL SULFATE 2.5 MG/0.5 ML INH NEB SOLN NEB PRN ×2 (11:21→15:37)
--- NOTE | 2017-03-12 13:58 | CCN ---
DATE: 03/11/2017 NOTE: Asked by Dr. Lopes to evaluate Ms. Edmond for acute and chronic respiratory failure. Ms. Edmond is an 81-vishnu-old white female with a past medical history of chronic obstructive pulmonary disease (COPD) with very severe air flow obstruction, hypertension, and congestive heart failure (CHF) who presented to the emergency department on 03/09/2017 after becoming rather acutely short of breath. She describes that she was in her usual state of health when she went to bed, she did not wake up short of breath but started walking to the bathroom and felt very short of breath and called 911. She did not fell unwell previously. No change in her baseline cough which is occasionally productive of whitish sputum. No hemoptysis. No chest pain or pressure. She did not appreciate significant wheezing. No gastroesophageal reflux disease (GERD) symptoms. Upon arrival to the emergency department, she was found to be tachycardic, had saturation of 99% on a non-rebreather, tachypneic, and have an arterial blood gas that showed a pH of 7.34/60/128, however, the base excess was -3.7. Chest x-ray was only remarkable for hyperinflation. Pertinent examination descriptions included generalized diminished air entry, wheezing, no jugular venous distention (JVD) and tachycardic. It was felt that she had a chronic obstructive pulmonary disease (COPD) exacerbation. Intravenous corticosteroids, bronchodilators, and azithromycin were given. She was admitted to medical/surgical. Early this morning per the nurses notes, the nurse was called to the room and she was found to have difficulty breathing. Her saturations were 84% on 2 liters which was increased to 4 liters. She then desaturated further and rapid assessment team (RAT) was called. Per discussion with the patient, she called the nurses. She needed to use the restroom and the nurse thought she looked too short of breath to walk. Nonetheless, an arterial blood gas was done at that time and showed a pH of 7.11 , pCO2 of 88 with pO2 of 180.4 (she has been placed on a non-rebreather when RAT was called) with a base excess of -4.7. She was transferred to the intensive care unit (ICU) and started on noninvasive mechanical ventilation. Workup at that time included a chest x-ray which showed pulmonary edema and small pleural effusions. BNP was 788. Her bicarbonate had drifted from 31 at the time of admission to 26 this morning and her intake and output appeared to be positive 600-700 mL since admission. ALLERGIES: No known drug allergies. MEDICATIONS AT THE TIME OF TRANSFER: - azithromycin 500 mg IV - albuterol HFA two puffs every 4 hours as needed - DuoNeb every 6 hours and every 2 hours as needed - Solu-Medrol 80 mg IV every 12 hours - Dulcolax as needed - Zebeta 2.5 mg by mouth daily - Lovenox 30 mg subcutaneous daily - lisinopril 40 mg by mouth daily PHYSICAL EXAMINATION: General: Ms. Edmond is lying in bed initially with the noninvasive mechanical ventilator face mask in place and then later on 2 liters of oxygen nasal cannula. She was using supraclavicular accessory muscles both on the device and off the device. She can speak in sort sentences. Vital signs: Temperature 98.4, pulse 108, respiratory rate 18, blood pressure 124/58 with a map of 80 and an SpO2 of 97% on FiO2 of 0.4 through the noninvasive mechanical ventilator. On 2 liters via nasal cannula, SpO2 is 92%. HEENT: Anicteric. Nares: Patent bilaterally with moist mucosa. Oral pharynx clear, no lesions, no evidence of drainage in the posterior pharynx, dentures. Neck: Supple, elevated jugular venous pulse (JVP), without thyromegaly or masses. Trachea is midline. Lymphs: Without cervical or supraclavicular lymphadenopathy. Lungs: Symmetric but minimal excursion, markedly diminished air entry, a few faint expiratory wheezes heard at the bases, no rhonchi. No significant crackles. Prolonged expiratory phase. Hyperresonance percussion. Chest: Increased diameter. Cardiovascular: Tachycardic, regular rhythm with occasional ectopic beat, no murmur, rub. Examination appreciated but exam is very distant. Abdomen: Positive bowel sounds, soft, nondistended, nontender, no hepatosplenomegaly or masses appreciated. Extremities: Without clubbing, cyanosis or significant edema, palpable petal pulses bilaterally. LABORATORY DATA: This morning, CBC showed a sodium of 147, potassium 5.1, chloride 113, bicarbonate 26, anion gap 8, BUN 25, creatinine 0.91, glucose 183, calcium 8.5, magnesium 2.4, BNP 88, CK-MB 10.4, troponin I 0.12. CBC showed a hemoglobin of 13.2, hematocrit of 41.3, platelet count 230,000, white blood cell count 21,600 with a differential of 92% neutrophils, 5% lymphocytes, 3% monocytes. Of note, on admission, her WBC was normal at 9.2 and differential was 69% neutrophils and 22% lymphocytes. Initial arterial blood gas was 7.11/88/180 with a measured saturation 99% and a base excess of -4.7. After she has been on noninvasive, her most recent blood gas is 7.30/59/72 with a measured saturation of 95% and a base excess of 0.5. I reviewed her chest x-ray from admission on 03/09/2017. That x-ray showed likely normal appearing cardiac silhouette and pulmonary vascular shadow. Likely normal mediastinal region. No acute infiltrates. Blunting of the right hemidiaphragm, marked hyperinflation. I reviewed her chest x-ray from earlier this morning. That x-ray was similar except that it now showed increased interstitial markings and perhaps blunting of the left hemidiaphragm as well as the right. IMPRESSION: 1. Acute and chronic hypercapnic and hypoxemic respiratory failure. In reviewing her history and presenting information, particularly the negative base excess, I question of the cause of the decompensation may not have been cardiac in nature to begin with. Her baseline chronic obstructive pulmonary disease (COPD) appeared well compensated and she did not display any symptoms until rather acutely becoming decompensated. It is very unlikely for chronic obstructive pulmonary disease (COPD) to "suddenly" decompensate. Bronchospasm could cause a sudden decompensation but should be easily reversed. Question if at that time she did not have some level of cardiac decompensation to explain her original difficulties. Clearly this morning, her decompensation appears to be secondary to pulmonary edema. 2. Chronic obstructive pulmonary disease (COPD), very severe at baseline, Gold class III. 3. Congestive heart failure (CHF). 4. Hypertension. 5. Tobacco usage ongoing at the time of admission. RECOMMENDATIONS: 1. Would markedly reduce the amount of Solu-Medrol that she is receiving. 2. Agree with gentle diuresis. 3. At this time, I do not feel she requires a noninvasive mechanical ventilator anymore. We will discontinue it and I have asked both respiratory therapy and nursing to obtain an ABG if she appears to require it again. They do not need to wait for the results before restarting the device but it would be ideal if we could get the information prior to starting therapy. 4. Would repeat an echocardiogram. She reports she had one last done 2 years ago as an outpatient. 5. Continue in Spiriva. 6. Will add an inhaled corticosteroid/LABA via nebulized method for her. 7. Will change her rescue bronchodilators to every 4 hours as needed and discontinue the standing and rescue ipratropium bromide. 8. I will discuss the above recommendations with Dr. Lopes. CRITICAL CARE TIME: 40 minutes not including procedure time. TORSTEND
--- NOTE | 2017-03-12 15:58 | IPN ---
DATE: 03/12/2017 SUBJECTIVE: The patient is seen and examined in the room today. During the morning encounter, the patient demonstrates significant anxiety and respiratory distress. The patient is in the process of receiving nebulizer treatments. The patient also has tachycardia during the encounter. OBJECTIVE: VITAL SIGNS: Temperature is 98, pulse is 114, respiratory rate 24, blood pressure is 158/76, pulse oximetry is 93% with one liter nasal cannula. GENERAL: Anxious, mild to moderate distress secondary to respiratory distress. Alert and oriented times three. Able to follow commands. Positive accessory muscle use. HEENT: Normocephalic, atraumatic. CARDIOVASCULAR: Tachycardia. Positive systolic murmur. Positive S1, S2. LUNGS: Markedly diminished breath sounds, very fine wheezes bilaterally mostly at the base. I cannot appreciate any crackles. ABDOMEN: Soft, nontender. EXTREMITIES: No edema. No cyanosis. LABORATORY DATA: WBC is 12.1, hemoglobin 14.4, hematocrit is 40.8, and platelet count is 151. Sodium is 144, potassium 3.3, chloride is 99, carbon dioxide 38, BUN 30, creatinine 1.1, GFR is 50.7, fasting glucose 93, calcium is 8.9. Troponin I is 0.1, BNP is 288. ASSESSMENT AND PLAN: 1. Acute on chronic respiratory distress. The patient has baseline chronic obstructive pulmonary disease (COPD). The patient is experiencing an exacerbation. The patient also is being treated for congestive heart failure exacerbation. IV Lasix has been given to the patient to achieve a negative fluid balance. The patient has continued to use nebulizer treatments. [employer] Welder, Dr. Barry, has been consulted. The patient is on a proton pump inhibitor (PPI) since admission. This morning, the patient had acute worsening of her condition. The description of the event is very similar to the first that resulted in her current hospitalization. For the first event, the patient developed acute respiratory distress at around 10:00 p.m. during sleep. The current worsening respiratory distress occurred early in the morning when the patient was also in a sound sleep. 2. 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 The most recent echocardiogram was done in 2007. Currently, the patient has fluid overload in the lizabeth. The patient is receiving IV diuresis. Continue monitoring input and output and daily weight. The patient is being followed in Dr. Luna/Jeovanny's office. We will try to request the most recent progress note and echocardiogram results. 3. COPD exacerbation. We will refer the steroid dose to the dairy nutrition consultant. 4. Hypertension. Due to the patient started having acute change of renal function, we will discontinue the lisinopril for now. The patient is continued on the Zebeta. 5. Acute kidney injury. Currently, the patient is going through IV Lasix diuresis for her congestive heart failure (CHF) exacerbation. We will decrease the intensity and the frequency of the IV diuretic with holding parameter. Brain natriuretic peptide (BNP) decreased from 700 to 200s. 6. Deep vein thrombosis (DVT) prophylaxis, on Lovenox.
[2017-03-12] MEDS: SIMVASTATIN 40 MG TAB PO SCH (21:10)
[2017-03-13] VITALS (7 sets, daily range): BP systolic 96–148; BP diastolic 52–68
[2017-03-13] MEDS: ALBUTEROL SULFATE 2.5 MG/0.5 ML INH NEB SOLN NEB PRN ×2 (03:58→10:06)
[2017-03-13 05:03] LABS: MEAN CORPUSCULAR HEMOGLOBIN 31.5 pg (27.0-33.0); MEAN CORPUSCULAR HGB CONC 33.6 g/dl (32.0-36.5); MEAN CORPUSCULAR VOLUME 93.8 fl (80.0-96.0); WHITE BLOOD COUNT 8.2 K/mm3 (4.0-10.0)
[2017-03-13 05:19] LABS: CALCIUM LEVEL 8.8 MG/DL (8.8-10.2); CREATININE FOR GFR 1.2 MG/DL (0.55-1.02); GLOMERULAR FILTRATION RATE 45.9 (>32); POTASSIUM SERUM 3.5 MEQ/L (3.5-5.1)
[2017-03-13] MEDS: TIOTROPIUM INHALER/CAPSULE (SPIRIVA) INH SCH (07:59)
[2017-03-13] MEDS: FORMOTEROL FUMARATE 20 MCG/2 ML INHALATION SOLUTION (PERFOROMIST) INH SCH ×2 (07:59→20:42)
[2017-03-13] MEDS: BUDESONIDE 0.5 MG/2 ML INHALATION SUSPENSION INH SCH ×2 (07:59→20:42)
[2017-03-13] MEDS: methylPREDNISolone INJ 40 MG/1 ML VIAL (J2920) IV SCH ×3 (08:57→23:48)
[2017-03-13] MEDS: ENOXAPARIN 30 MG/0.3 ML SYR (J1650) SC SCH (08:58)
[2017-03-13] MEDS: PANTOPRAZOLE 40MG INJ (PROTONIX) (C9113) IV SCH (08:58)
[2017-03-13] MEDS: BISOPROLOL FUMARATE 5 MG TAB PO SCH (09:00)
[2017-03-13] MEDS: FUROSEMIDE 40 MG/4 ML VIAL (J1940) IV SCH (09:35)
[2017-03-13] MEDS: DOCUSATE SODIUM 100 MG CAP PO PRN (09:36)
--- NOTE | 2017-03-13 17:25 | IPNPDOC ---
Subjective Date Seen The patient was seen on 03/13/17. Subjective Chief Complaint/HPI Patient seen and examined at the bedside this morning. States that her respiratory status is improving but she still feels some shortness of breath upon movement. Does not offer any other acute complaints or overnight events at this time. Objective Physical Examination General Exam: Positive: Alert, Cooperative, No Acute Distress ENT Exam: Positive: Atraumatic, Mucous membr. moist/pink Neck Exam: Negative: JVD Chest Exam: Positive: Diminished, Negative: Rales, Rhonchi, Wheezing Heart Exam: Positive: Rate Normal, Regular Rhythm, Normal S1, Normal S2 Abdomen Exam: Positive: Soft, Negative: Tenderness Extremity Exam: Negative: Tenderness, Swelling Psych Exam: Positive: Oriented x 3 Assessment /Plan Plan/VTE VTE Prophylaxis Ordered?: Yes (lovenox SC) Plan Acute on chronic respiratory distress 2/2 chronic obstructive pulmonary disease (COPD) exacerbation. Patient initially noted to have diminished airway entry, wheezing on exam On IV Steroids Cont Albuterol. Spiriva, Formoterol Dr. Barry of Pulmonary on board--input appreciated Patient on baseline 2L of oxygen at home Respiratory status is improving We will downgrade the patient to Med/Surg today Systolic and diastolic congestive heart failure exacerbation. Most recent echocardiogram was done in 2007 on records here. Follows with Dr. Luna/Basim office The patient did have decompensation of CHF here, and IV Lasix has been ordered She has diuresed a net negative of ~2.5L over the last 48+ hours Her volume status has significantly improved, as has her respiratory status Records from her outpatient director of corporate strategy are still pending We will cont to monitor the patient's volume/respiratory status and titrate her diuretics accordingly COPD exacerbation Cont management as noted above Hypertension, stable Cont current regimen Chronic Kidney Disease Stage III, stable Baseline Serum creatinine appears to be between 1.0-1.2 based on previous records Constipation Continue Colace Dyslipidemia Continue statin GERD Continue Pepcid Deep vein thrombosis (DVT) prophylaxis Cont Lovenox SC Disposition-we will continue to have the patient work with physical therapy as her respiratory status improves. PFS on board for possible placement versus home with services VS, I&O, 24H, Fishbone Vital Signs/I&O Vital Signs Date Time Temp Pulse Resp B/P (MAP) Pulse Ox O2 Delivery O2 Flow Rate FiO2 03/13/17 16:00 Nasal Cannula 2.0 03/13/17 12:00 98.3 113 30 112/52 (72) 92 03/11/17 10:00 40 I&O- Last 24 Hours up to 6 AM 03/13/17 06:00 Intake Total 640 ml Output Total 1260 ml Balance -620 ml Laboratory Data 24H LABS Laboratory Tests 2 03/13/17 04:53: Anion Gap 4L, Glomerular Filtration Rate 45.9, Blood Urea Nitrogen 45H, Creatinine 1.20H, Sodium Level 142, Potassium Level 3.5, Chloride Level 97L, Carbon Dioxide Level 41H, Calcium Level 8.8 CBC/BMP Laboratory Tests 03/13/17 04:53 Red Blood Count 4.41, Mean Corpuscular Volume 93.8, Mean Corpuscular Hemoglobin 31.5, Mean Corpuscular Hemoglobin Concent 33.6, Red Cell Distribution Width 13.0 , Calcium Level 8.8 Microbiology Microbiology 03/09/17 Blood Culture - Preliminary, Resulted No Growth after 72 hours. All specime... 03/09/17 Influenza Virus Type A Antigen - Final, Complete 03/09/17 Influenza Virus Type B Antigen - Final, Complete JUANITO JURADO MD Mar 13, 2017 17:25
[2017-03-13] MEDS: SIMVASTATIN 40 MG TAB PO SCH (20:20)
[2017-03-13] MEDS: FAMOTIDINE 20 MG TAB PO SCH (20:20)
[2017-03-14 02:00] VITALS: BP 100/56
[2017-03-14 06:00] VITALS: BP 95/50
[2017-03-14] MEDS: FORMOTEROL FUMARATE 20 MCG/2 ML INHALATION SOLUTION (PERFOROMIST) INH SCH ×2 (08:16→19:18)
[2017-03-14] MEDS: TIOTROPIUM INHALER/CAPSULE (SPIRIVA) INH SCH (08:16)
[2017-03-14] MEDS: BUDESONIDE 0.5 MG/2 ML INHALATION SUSPENSION INH SCH ×2 (08:16→19:18)
[2017-03-14] MEDS: PANTOPRAZOLE 40MG INJ (PROTONIX) (C9113) IV SCH (09:34)
[2017-03-14] MEDS: BISOPROLOL FUMARATE 5 MG TAB PO SCH (09:34)
[2017-03-14] MEDS: methylPREDNISolone INJ 40 MG/1 ML VIAL (J2920) IV SCH ×3 (09:35→23:02)
[2017-03-14 10:00] VITALS: BP 110/50
[2017-03-14] MEDS ORDERED: FLEET ENEMA PR PRN (11:15)
[2017-03-14 12:04] LABS: MEAN CORPUSCULAR HEMOGLOBIN 31.5 pg (27.0-33.0); MEAN CORPUSCULAR HGB CONC 33.6 g/dl (32.0-36.5); MEAN CORPUSCULAR VOLUME 93.8 fl (80.0-96.0); RED CELL DISTRIBUTION WIDTH 12.9 % (11.5-14.5); WHITE BLOOD COUNT 13.1 K/mm3 (4.0-10.0)
[2017-03-14] MEDS: MOM 30ML SUSPENSION UDC PO PRN ×2 (12:20→22:00)
[2017-03-14] MEDS: DOCUSATE SODIUM 100 MG CAP PO PRN ×2 (12:20→22:00)
[2017-03-14 13:08] LABS: CALCIUM LEVEL 9.7 MG/DL (8.8-10.2); CREATININE FOR GFR 1.68 MG/DL (0.55-1.02); GLOMERULAR FILTRATION RATE 31.1 (>32); POTASSIUM SERUM 4.2 MEQ/L (3.5-5.1)
--- NOTE | 2017-03-14 13:56 | IPNPDOC ---
Subjective Date Seen The patient was seen on 03/14/17. Subjective Chief Complaint/HPI Patient seen and examined at the bedside. Reports that her respiratory status is improved this morning and notes that she is eager to work with physical therapy. Objective Physical Examination General Exam: Positive: Alert, Cooperative, No Acute Distress ENT Exam: Positive: Atraumatic, Mucous membr. moist/pink Neck Exam: Negative: JVD Chest Exam: Positive: Diminished, Negative: Rales, Rhonchi, Wheezing Heart Exam: Positive: Rate Normal, Regular Rhythm, Normal S1, Normal S2 Abdomen Exam: Positive: Soft, Negative: Tenderness Extremity Exam: Negative: Tenderness, Swelling Psych Exam: Positive: Oriented x 3 Assessment /Plan Plan/VTE VTE Prophylaxis Ordered?: Yes (lovenox SC) Plan Acute on chronic respiratory distress 2/2 chronic obstructive pulmonary disease (COPD) exacerbation. Patient initially noted to have diminished airway entry, wheezing on exam Cont On IV Steroids Cont Albuterol. Spiriva, Formoterol Dr. 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 Most recent echocardiogram was done in 2007 on records here. Follows with Dr. Luna/Basim office The patient did have decompensation of CHF here, and IV Lasix was ordered She has diuresed a net negative of ~2.5L over the last 72+ hours Her volume status has significantly improved, as has her respiratory status Records from her outpatient account support associate are still pending We will cont to monitor the patient's volume/respiratory status COPD exacerbation Cont management as noted above Hypertension, stable Cont current regimen Chronic Kidney Disease Stage III Baseline Serum creatinine appears to be between 1.0-1.2 based on previous records The patient's serum cr is slightly elevated today at 1.6--we will hold diuretic therapy for now, and continue to monitor Constipation Continue Colace Dyslipidemia Continue statin GERD Continue Pepcid Deep vein thrombosis (DVT) prophylaxis Cont Lovenox SC Disposition-we will continue to have the patient work with physical therapy as her respiratory status improves. PFS on board for possible placement versus home with services VS, I&O, 24H, Fishbone Vital Signs/I&O Vital Signs Date Time Temp Pulse Resp B/P (MAP) Pulse Ox O2 Delivery O2 Flow Rate FiO2 03/14/17 10:00 97.7 76 21 110/50 (33) 94 Nasal Cannula 2.0 03/11/17 10:00 40 I&O- Last 24 Hours up to 6 AM 03/14/17 05:59 Intake Total 550 ml Output Total 1265 ml Balance -715 ml Laboratory Data 24H LABS Laboratory Tests 2 03/14/17 11:40: Anion Gap 9, Glomerular Filtration Rate 31.1L, Blood Urea Nitrogen 67H, Creatinine 1.68H, Sodium Level 138, Potassium Level 4.2, Chloride Level 92L, Carbon Dioxide Level 37H, Calcium Level 9.7 CBC/BMP Laboratory Tests 03/14/17 11:40 Red Blood Count 5.04, Mean Corpuscular Volume 93.8, Mean Corpuscular Hemoglobin 31.5, Mean Corpuscular Hemoglobin Concent 33.6, Red Cell Distribution Width 12.9 , Calcium Level 9.7 Microbiology Microbiology 03/09/17 Blood Culture - Final, Complete NO GROWTH AFTER 5 DAYS 03/09/17 Influenza Virus Type A Antigen - Final, Complete 03/09/17 Influenza Virus Type B Antigen - Final, Complete JUANITO JURADO MD Mar 14, 2017 13:56
[2017-03-14 14:00] VITALS: BP 106/62
[2017-03-14] MEDS: ENOXAPARIN 30 MG/0.3 ML SYR (J1650) SC SCH (17:23)
[2017-03-14 18:00] VITALS: BP 91/51
[2017-03-14] MEDS: ALBUTEROL SULFATE 2.5 MG/0.5 ML INH NEB SOLN NEB PRN (18:05)
[2017-03-14] MEDS: FAMOTIDINE 20 MG TAB PO SCH (21:58)
[2017-03-14] MEDS: SIMVASTATIN 40 MG TAB PO SCH (21:58)
[2017-03-14 22:00] VITALS: BP 100/40
[2017-03-15 02:00] VITALS: BP 121/57
[2017-03-15 06:00] VITALS: BP 90/54
[2017-03-15 06:18] LABS: MEAN CORPUSCULAR HEMOGLOBIN 31.5 pg (27.0-33.0); MEAN CORPUSCULAR HGB CONC 33.8 g/dl (32.0-36.5); MEAN CORPUSCULAR VOLUME 93.3 fl (80.0-96.0); WHITE BLOOD COUNT 11.1 K/mm3 (4.0-10.0)
[2017-03-15 06:33] LABS: CALCIUM LEVEL 8.9 MG/DL (8.8-10.2); CREATININE FOR GFR 2.02 MG/DL (0.55-1.02); GLOMERULAR FILTRATION RATE 25.2 (>32); POTASSIUM SERUM 4.2 MEQ/L (3.5-5.1)
[2017-03-15] MEDS: NS 480 ML IV SCH ×2 (07:12→18:40)
[2017-03-15] MEDS: methylPREDNISolone INJ 40 MG/1 ML VIAL (J2920) IV SCH (08:00)
[2017-03-15] MEDS: BUDESONIDE 0.5 MG/2 ML INHALATION SUSPENSION INH SCH ×2 (08:24→19:29)
[2017-03-15] MEDS: TIOTROPIUM INHALER/CAPSULE (SPIRIVA) INH SCH (08:24)
[2017-03-15] MEDS: FORMOTEROL FUMARATE 20 MCG/2 ML INHALATION SOLUTION (PERFOROMIST) INH SCH ×2 (08:24→19:29)
[2017-03-15] MEDS: BISOPROLOL FUMARATE 5 MG TAB PO SCH (09:00)
[2017-03-15 10:00] VITALS: BP 91/56
--- NOTE | 2017-03-15 11:41 | IPNPDOC ---
Subjective Date Seen The patient was seen on 03/15/17. Subjective Chief Complaint/HPI Patient seen and examined at the bedside this morning. She states that her respiratory status is improving still. She reports that she will continue to work with physical therapy this morning after she has breakfast. Objective Physical Examination General Exam: Positive: Alert, Cooperative, No Acute Distress ENT Exam: Positive: Atraumatic, Mucous membr. moist/pink Neck Exam: Negative: JVD Chest Exam: Positive: Diminished, Negative: Rales, Rhonchi, Wheezing Heart Exam: Positive: Rate Normal, Regular Rhythm, Normal S1, Normal S2 Abdomen Exam: Positive: Soft, Negative: Tenderness Extremity Exam: Negative: Tenderness, Swelling Psych Exam: Positive: Oriented x 3 Assessment /Plan Plan/VTE VTE Prophylaxis Ordered?: Yes (lovenox SC) Plan Acute on chronic respiratory distress 2/2 chronic obstructive pulmonary disease (COPD) exacerbation. Patient initially noted to have diminished airway entry, wheezing on exam IV Steroids transitioned to PO Cont Albuterol. Spiriva, Formoterol Dr. 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 Most recent echocardiogram was done in 2007 on records here. Follows with Dr. Luna/Basim office The patient did have decompensation of CHF here, and IV Lasix was ordered She has diuresed a net negative of ~2L since admission Her volume status has significantly improved, as has her respiratory status We will cont to monitor the patient's volume/respiratory status COPD exacerbation Cont management as noted above Hypertension, stable Cont current regimen Chronic Kidney Disease Stage III Baseline Serum creatinine appears to be between 1.0-1.2 based on previous records The patient's serum cr is elevated today at 2.0--diuretic therapy has been held , in addition the patient states that she has not been drinking much fluid over the past few days Encourage by mouth intake of fluids Gentle IV fluid hydration ordered We will continue to monitor the patient's serum creatinine level Constipation Continue Colace Dyslipidemia Continue statin GERD Continue Pepcid Deep vein thrombosis (DVT) prophylaxis Cont Lovenox SC Disposition-we will continue to have the patient work with physical therapy as her respiratory status improves for functional optimization. PFS on board for possible placement versus home with services VS, I&O, 24H, Fishbone Vital Signs/I&O Vital Signs Date Time Temp Pulse Resp B/P (MAP) Pulse Ox O2 Delivery O2 Flow Rate FiO2 03/15/17 06:00 97.2 62 20 90/54 (66) 97 Nasal Cannula 2.0 03/11/17 10:00 40 I&O- Last 24 Hours up to 6 AM 03/15/17 06:00 Intake Total 410 ml Output Total 125 ml Balance 285 ml Laboratory Data 24H LABS Laboratory Tests 2 03/14/17 11:40: Anion Gap 9, Glomerular Filtration Rate 31.1L, Blood Urea Nitrogen 67H, Creatinine 1.68H, Sodium Level 138, Potassium Level 4.2, Chloride Level 92L, Carbon Dioxide Level 37H, Calcium Level 9.7 03/15/17 05:51: Anion Gap 8, Glomerular Filtration Rate 25.2L, Blood Urea Nitrogen 92H, Creatinine 2.02H, Sodium Level 140, Potassium Level 4.2, Chloride Level 93L, Carbon Dioxide Level 39H, Calcium Level 8.9 CBC/BMP Laboratory Tests 03/14/17 11:40 Red Blood Count 5.04, Mean Corpuscular Volume 93.8, Mean Corpuscular Hemoglobin 31.5, Mean Corpuscular Hemoglobin Concent 33.6, Red Cell Distribution Width 12.9 , Calcium Level 9.7 03/15/17 05:51 Red Blood Count 4.44, Mean Corpuscular Volume 93.3, Mean Corpuscular Hemoglobin 31.5, Mean Corpuscular Hemoglobin Concent 33.8, Red Cell Distribution Width 13.0 , Calcium Level 8.9 Microbiology Microbiology 03/09/17 Blood Culture - Final, Complete NO GROWTH AFTER 5 DAYS 03/09/17 Influenza Virus Type A Antigen - Final, Complete 03/09/17 Influenza Virus Type B Antigen - Final, Complete JUANITO JURADO MD Mar 15, 2017 11:41
[2017-03-15] MEDS: ENOXAPARIN 30 MG/0.3 ML SYR (J1650) SC SCH (12:19)
[2017-03-15] MEDS: predniSONE 20 MG TAB PO SCH (12:19)
[2017-03-15] MEDS: DOCUSATE SODIUM 100 MG CAP PO PRN (12:20)
[2017-03-15] MEDS: PANTOPRAZOLE 40MG INJ (PROTONIX) (C9113) IV SCH (12:20)
[2017-03-15 14:00] VITALS: BP 111/52
[2017-03-15 18:00] VITALS: BP 115/53
[2017-03-15 22:00] VITALS: BP 101/52
[2017-03-15] MEDS: FAMOTIDINE 20 MG TAB PO SCH (22:22)
[2017-03-15] MEDS: SIMVASTATIN 40 MG TAB PO SCH (22:22)
[2017-03-16 02:00] VITALS: BP 101/52
[2017-03-16 06:00] VITALS: BP 102/54
[2017-03-16 06:13] LABS: MEAN CORPUSCULAR HEMOGLOBIN 31.2 pg (27.0-33.0); MEAN CORPUSCULAR HGB CONC 32.9 g/dl (32.0-36.5); MEAN CORPUSCULAR VOLUME 94.9 fl (80.0-96.0); RED CELL DISTRIBUTION WIDTH 13.1 % (11.5-14.5); WHITE BLOOD COUNT 10.6 K/mm3 (4.0-10.0)
[2017-03-16 06:22] LABS: CALCIUM LEVEL 8.2 MG/DL (8.8-10.2); CREATININE FOR GFR 1.21 MG/DL (0.55-1.02); GLOMERULAR FILTRATION RATE 45.5 (>32); POTASSIUM SERUM 3.8 MEQ/L (3.5-5.1)
[2017-03-16] MEDS: FORMOTEROL FUMARATE 20 MCG/2 ML INHALATION SOLUTION (PERFOROMIST) INH SCH ×2 (08:15→19:29)
[2017-03-16] MEDS: BUDESONIDE 0.5 MG/2 ML INHALATION SUSPENSION INH SCH ×2 (08:15→19:31)
[2017-03-16] MEDS: TIOTROPIUM INHALER/CAPSULE (SPIRIVA) INH SCH (08:16)
[2017-03-16] MEDS: BISOPROLOL FUMARATE 5 MG TAB PO SCH (09:13)
[2017-03-16] MEDS: ENOXAPARIN 30 MG/0.3 ML SYR (J1650) SC SCH (09:13)
[2017-03-16] MEDS: predniSONE 20 MG TAB PO SCH (09:13)
[2017-03-16] MEDS: PANTOPRAZOLE 40MG INJ (PROTONIX) (C9113) IV SCH (09:13)
[2017-03-16 10:00] VITALS: BP 95/45
[2017-03-16 14:00] VITALS: BP 102/44
--- NOTE | 2017-03-16 15:11 | IPNPDOC ---
Subjective Date Seen The patient was seen on 03/16/17. Subjective Chief Complaint/HPI Patient seen and examined at the bedside. States that her exertional tolerance and respiratory status is improved. Denies any acute overnight complaints at this time. Objective Physical Examination General Exam: Positive: Alert, Cooperative, No Acute Distress ENT Exam: Positive: Atraumatic, Mucous membr. moist/pink Neck Exam: Negative: JVD Chest Exam: Positive: Diminished, Negative: Rales, Rhonchi, Wheezing Heart Exam: Positive: Rate Normal, Regular Rhythm, Normal S1, Normal S2 Abdomen Exam: Positive: Soft, Negative: Tenderness Extremity Exam: Negative: Tenderness, Swelling Psych Exam: Positive: Oriented x 3 Assessment /Plan Plan/VTE VTE Prophylaxis Ordered?: Yes (lovenox SC) Plan Acute on chronic respiratory distress 2/2 chronic obstructive pulmonary disease (COPD) exacerbation. Patient initially noted to have diminished airway entry, wheezing on exam IV Steroids transitioned to PO Cont Albuterol. Spiriva, Formoterol Dr. 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 Most recent echocardiogram was done in 2007 on records here. Follows with Dr. Luna/Basim office The patient did have decompensation of CHF here, and IV Lasix was ordered She has diuresed a net negative of ~2L since admission Her volume status has significantly improved, as has her respiratory status We will cont to monitor the patient's volume/respiratory status COPD exacerbation Cont management as noted above Hypertension, stable Cont current regimen Chronic Kidney Disease Stage III Baseline Serum creatinine appears to be between 1.0-1.2 based on previous records Serum Cr at baseline Constipation Continue Colace Dyslipidemia Continue statin GERD Continue Pepcid Deep vein thrombosis (DVT) prophylaxis Cont Lovenox SC Disposition-we will continue to have the patient work with physical therapy as her respiratory status improves for functional optimization. PFS on board for possible placement versus home with services VS, I&O, 24H, [facility]ardob[facility]raghu Vital Signs/I&O Vital Signs Date Time Temp Pulse Resp B/P (MAP) Pulse Ox O2 Delivery O2 Flow Rate FiO2 03/16/17 14:00 98.2 76 20 102/44 (63) 96 Nasal Cannula 2.0 03/11/17 10:00 40 I&O- Last 24 Hours up to 6 AM 03/16/17 06:00 Intake Total 1520 ml Output Total 585 ml Balance 935 ml Laboratory Data 24H LABS Laboratory Tests 2 03/16/17 05:25: Anion Gap 4L, Glomerular Filtration Rate 45.5, Blood Urea Nitrogen 71H, Creatinine 1.21H, Sodium Level 143, Potassium Level 3.8, Chloride Level 100, Carbon Dioxide Level 39H, Calcium Level 8.2L CBC/BMP Laboratory Tests 03/16/17 05:25 Red Blood Count 4.02, Mean Corpuscular Volume 94.9, Mean Corpuscular Hemoglobin 31.2, Mean Corpuscular Hemoglobin Concent 32.9, Red Cell Distribution Width 13.1 , Calcium Level 8.2 L Microbiology Microbiology 03/09/17 Blood Culture - Final, Complete NO GROWTH AFTER 5 DAYS 03/09/17 Influenza Virus Type A Antigen - Final, Complete 03/09/17 Influenza Virus Type B Antigen - Final, Complete JUANITO JURADO MD Mar 16, 2017 15:11
[2017-03-16 18:00] VITALS: BP 108/48
[2017-03-16] MEDS: SIMVASTATIN 40 MG TAB PO SCH (20:49)
[2017-03-16] MEDS: FAMOTIDINE 20 MG TAB PO SCH (20:49)
[2017-03-16 22:00] VITALS: BP 98/54
[2017-03-17 02:00] VITALS: BP 101/46
[2017-03-17 05:49] LABS: MEAN CORPUSCULAR HEMOGLOBIN 31.7 pg (27.0-33.0); MEAN CORPUSCULAR HGB CONC 33.2 g/dl (32.0-36.5); MEAN CORPUSCULAR VOLUME 95.5 fl (80.0-96.0); WHITE BLOOD COUNT 10.3 K/mm3 (4.0-10.0)
[2017-03-17 06:00] VITALS: BP 119/62
[2017-03-17 06:05] LABS: ANION GAP 4 MEQ/L (8-16); BLOOD UREA NITROGEN 38 MG/DL (7-18); CALCIUM LEVEL 8.1 MG/DL (8.8-10.2); CARBON DIOXIDE LEVEL 38 MEQ/L (21-32); CHLORIDE LEVEL 102 MEQ/L (98-107); CREATININE FOR GFR 0.92 MG/DL (0.55-1.02); GLOMERULAR FILTRATION RATE > 60.0 (>32); GLUCOSE, FASTING 77 MG/DL (83-110); POTASSIUM SERUM 3.8 MEQ/L (3.5-5.1); SODIUM LEVEL 144 MEQ/L (136-145)
[2017-03-17] MEDS: FORMOTEROL FUMARATE 20 MCG/2 ML INHALATION SOLUTION (PERFOROMIST) INH SCH ×2 (07:13→19:08)
[2017-03-17] MEDS: TIOTROPIUM INHALER/CAPSULE (SPIRIVA) INH SCH (07:13)
[2017-03-17] MEDS: BUDESONIDE 0.5 MG/2 ML INHALATION SUSPENSION INH SCH ×2 (07:13→19:08)
[2017-03-17] MEDS: PANTOPRAZOLE 40MG INJ (PROTONIX) (C9113) IV SCH (08:47)
[2017-03-17] MEDS: ENOXAPARIN 30 MG/0.3 ML SYR (J1650) SC SCH (08:47)
[2017-03-17] MEDS: BISOPROLOL FUMARATE 5 MG TAB PO SCH (08:48)
[2017-03-17] MEDS: predniSONE 10 MG TAB PO SCH (08:49)
[2017-03-17 10:00] VITALS: BP 106/51
--- NOTE | 2017-03-17 10:46 | IPNPDOC ---
Subjective Date Seen The patient was seen on 03/17/17. Subjective Chief Complaint/HPI Patient seen and examined at bedside this morning. States that she is feeling better every day and notes improvement with her sessions with physical therapy. Denies any acute complaints at this time. Objective Physical Examination General Exam: Positive: Alert, Cooperative, No Acute Distress ENT Exam: Positive: Atraumatic, Mucous membr. moist/pink Neck Exam: Negative: JVD Chest Exam: Positive: Diminished, Negative: Rales, Rhonchi, Wheezing Heart Exam: Positive: Rate Normal, Regular Rhythm, Normal S1, Normal S2 Abdomen Exam: Positive: Soft, Negative: Tenderness Extremity Exam: Negative: Tenderness, Swelling Psych Exam: Positive: Oriented x 3 Assessment /Plan Plan/VTE VTE Prophylaxis Ordered?: Yes (lovenox SC) Plan Acute on chronic respiratory distress 2/2 chronic obstructive pulmonary disease (COPD) exacerbation. Patient initially noted to have diminished airway entry, wheezing on exam Down tapering dose of prednisone Cont Albuterol. Spiriva, Formoterol Dr. 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 Most recent echocardiogram was done in 2007 on records here. Follows with Dr. Luna/Basim office The patient did have decompensation of CHF here, and IV Lasix was ordered She has maintained a net negative balance here since admission Her volume status has significantly improved, as has her respiratory status We will cont to monitor the patient's volume/respiratory status COPD exacerbation Cont management as noted above Hypertension, stable Cont current regimen Chronic Kidney Disease Stage III Baseline Serum creatinine appears to be between 1.0-1.2 based on previous records Serum Cr at baseline Constipation Continue Colace Dyslipidemia Continue statin GERD Continue Pepcid Deep vein thrombosis (DVT) prophylaxis Cont Lovenox SC Disposition-we will continue to have the patient work with physical therapy as her respiratory status improves for functional optimization. PFS on board for possible placement versus home with services VS, I&O, 24H, Fishbone Vital Signs/I&O Vital Signs Date Time Temp Pulse Resp B/P (MAP) Pulse Ox O2 Delivery O2 Flow Rate FiO2 03/17/17 10:00 98.2 63 18 106/51 (69) 91 Nasal Cannula 2.0 03/11/17 10:00 40 I&O- Last 24 Hours up to 6 AM 03/17/17 06:00 Intake Total 810 ml Output Total 800 ml Balance 10 ml Laboratory Data 24H LABS Laboratory Tests 2 03/17/17 05:21: Anion Gap 4L, Glomerular Filtration Rate > 60.0, Blood Urea Nitrogen 38H, Creatinine 0.92, Sodium Level 144, Potassium Level 3.8, Chloride Level 102, Carbon Dioxide Level 38H, Calcium Level 8.1L CBC/BMP Laboratory Tests 03/17/17 05:21 Red Blood Count 3.99 L, Mean Corpuscular Volume 95.5, Mean Corpuscular Hemoglobin 31.7, Mean Corpuscular Hemoglobin Concent 33.2, Red Cell Distribution Width 13.0, Calcium Level 8.1 L Microbiology Microbiology 03/09/17 Blood Culture - Final, Complete NO GROWTH AFTER 5 DAYS 03/09/17 Influenza Virus Type A Antigen - Final, Complete 03/09/17 Influenza Virus Type B Antigen - Final, Complete JUANITO JURADO MD Mar 17, 2017 10:46
[2017-03-17 14:00] VITALS: BP 125/56
[2017-03-17 18:00] VITALS: BP_SYST 122; BP_SYST 138; BP_DIAS 86; BP_DIAS 99
[2017-03-17] MEDS: FAMOTIDINE 20 MG TAB PO SCH (21:06)
[2017-03-17] MEDS: SIMVASTATIN 40 MG TAB PO SCH (21:06)
[2017-03-17 22:00] VITALS: BP 100/55
[2017-03-18 02:00] VITALS: BP 100/51
[2017-03-18 05:58] LABS: MEAN CORPUSCULAR HEMOGLOBIN 31.4 pg (27.0-33.0); MEAN CORPUSCULAR HGB CONC 33.4 g/dl (32.0-36.5); MEAN CORPUSCULAR VOLUME 94.1 fl (80.0-96.0); RED CELL DISTRIBUTION WIDTH 12.5 % (11.5-14.5)
[2017-03-18 06:00] VITALS: BP 103/55
[2017-03-18 06:16] LABS: ANION GAP 3 MEQ/L (8-16); BLOOD UREA NITROGEN 27 MG/DL (7-18); CALCIUM LEVEL 8.3 MG/DL (8.8-10.2); CARBON DIOXIDE LEVEL 39 MEQ/L (21-32); CHLORIDE LEVEL 103 MEQ/L (98-107); CREATININE FOR GFR 0.86 MG/DL (0.55-1.02); GLOMERULAR FILTRATION RATE > 60.0 (>32); GLUCOSE, FASTING 85 MG/DL (83-110); POTASSIUM SERUM 4.3 MEQ/L (3.5-5.1); SODIUM LEVEL 145 MEQ/L (136-145)
[2017-03-18] MEDS: TIOTROPIUM INHALER/CAPSULE (SPIRIVA) INH SCH (07:08)
[2017-03-18] MEDS: FORMOTEROL FUMARATE 20 MCG/2 ML INHALATION SOLUTION (PERFOROMIST) INH SCH ×2 (07:08→19:21)
[2017-03-18] MEDS: BUDESONIDE 0.5 MG/2 ML INHALATION SUSPENSION INH SCH ×2 (07:08→19:21)
[2017-03-18] MEDS: PANTOPRAZOLE 40MG INJ (PROTONIX) (C9113) IV SCH (09:31)
[2017-03-18] MEDS: predniSONE 10 MG TAB PO SCH (09:31)
[2017-03-18] MEDS: ENOXAPARIN 30 MG/0.3 ML SYR (J1650) SC SCH (09:32)
[2017-03-18] MEDS: BISOPROLOL FUMARATE 5 MG TAB PO SCH (09:35)
[2017-03-18 10:00] VITALS: BP 109/51
--- NOTE | 2017-03-18 11:39 | IPNPDOC ---
Subjective Date Seen The patient was seen on 03/18/17. Subjective Chief Complaint/HPI Patient seen and examined at the bedside. States that her respiratory status continues to improve. She is eager to work with physical therapy in an effort to hopefully go home soon. Objective Physical Examination General Exam: Positive: Alert, Cooperative, No Acute Distress ENT Exam: Positive: Atraumatic, Mucous membr. moist/pink Neck Exam: Negative: JVD Chest Exam: Positive: Diminished, Negative: Rales, Rhonchi, Wheezing Heart Exam: Positive: Rate Normal, Regular Rhythm, Normal S1, Normal S2 Abdomen Exam: Positive: Soft, Negative: Tenderness Extremity Exam: Negative: Tenderness, Swelling Psych Exam: Positive: Oriented x 3 Assessment /Plan Plan/VTE VTE Prophylaxis Ordered?: Yes (lovenox SC) Plan Acute on chronic respiratory distress 2/2 chronic obstructive pulmonary disease (COPD) exacerbation. Patient initially noted to have diminished airway entry, wheezing on exam Down tapering dose of prednisone Cont Albuterol. Spiriva, Formoterol Dr. Barry of Pulmonary on board--input appreciated Patient on baseline 2L of oxygen at home Respiratory status is improving We will continue to monitor the patient's progress Diastolic congestive heart failure exacerbation. ECHO results from 2010 from outpatient reviewed--Stage [address] Luna/Basim office The patient did have decompensation of CHF here, s/p IV Lasix Her volume status has significantly improved, as has her respiratory status We will cont to monitor the patient's volume/respiratory status COPD exacerbation Cont management as noted above Hypertension, stable Cont current regimen Chronic Kidney Disease Stage III Baseline Serum creatinine appears to be between 1.0-1.2 based on previous records Serum Cr at baseline Constipation Continue Colace Dyslipidemia Continue statin GERD Continue Pepcid Deep vein thrombosis (DVT) prophylaxis Cont Lovenox SC Disposition-we will continue to have the patient work with physical therapy as her respiratory status improves for functional optimization. PFS on board for possible placement versus home with services VS, I&O, 24H, Fishbone Vital Signs/I&O Vital Signs Date Time Temp Pulse Resp B/P (MAP) Pulse Ox O2 Delivery O2 Flow Rate FiO2 03/18/17 09:35 118/46 03/18/17 06:00 97.2 66 19 94 Nasal Cannula 2.0 I&O- Last 24 Hours up to 6 AM 03/18/17 06:00 Intake Total 1760 ml Output Total 450 ml Balance 1310 ml Laboratory Data 24H LABS Laboratory Tests 2 03/18/17 05:13: Anion Gap 3L, Glomerular Filtration Rate > 60.0, Blood Urea Nitrogen 27H, Creatinine 0.86, Sodium Level 145, Potassium Level 4.3, Chloride Level 103, Carbon Dioxide Level 39H, Calcium Level 8.3L CBC/BMP Laboratory Tests 03/18/17 05:13 Red Blood Count 3.81 L, Mean Corpuscular Volume 94.1, Mean Corpuscular Hemoglobin 31.4, Mean Corpuscular Hemoglobin Concent 33.4, Red Cell Distribution Width 12.5, Calcium Level 8.3 L Microbiology Microbiology 03/09/17 Blood Culture - Final, Complete NO GROWTH AFTER 5 DAYS 03/09/17 Influenza Virus Type A Antigen - Final, Complete 03/09/17 Influenza Virus Type B Antigen - Final, Complete JUANITO JURADO MD Mar 18, 2017 11:39
[2017-03-18 14:00] VITALS: BP 100/60
[2017-03-18 18:00] VITALS: BP 137/56
[2017-03-18] MEDS: FAMOTIDINE 20 MG TAB PO SCH (21:06)
[2017-03-18] MEDS: SIMVASTATIN 40 MG TAB PO SCH (21:06)
[2017-03-18 22:00] VITALS: BP 100/46
[2017-03-19 02:00] VITALS: BP 111/52
[2017-03-19 06:00] VITALS: BP 104/51
[2017-03-19] MEDS: TIOTROPIUM INHALER/CAPSULE (SPIRIVA) INH SCH (08:28)
[2017-03-19] MEDS: BUDESONIDE 0.5 MG/2 ML INHALATION SUSPENSION INH SCH (08:28)
[2017-03-19] MEDS: FORMOTEROL FUMARATE 20 MCG/2 ML INHALATION SOLUTION (PERFOROMIST) INH SCH (08:28)
[2017-03-19] MEDS ORDERED: predniSONE 20 MG TAB PO SCH (09:00)
[2017-03-19] MEDS: ENOXAPARIN 30 MG/0.3 ML SYR (J1650) SC SCH (10:17)
[2017-03-19] MEDS: PANTOPRAZOLE 40MG INJ (PROTONIX) (C9113) IV SCH (10:17)
[2017-03-19 10:39] VITALS: BP 99/55
[2017-03-19] MEDS: BISOPROLOL FUMARATE 5 MG TAB PO SCH (10:39)
--- NOTE | 2017-03-19 10:51 | IPNPDOC ---
Subjective Date Seen The patient was seen on 03/19/17. Subjective Chief Complaint/HPI Patient seen and examined at the bedside this morning. Denies any acute complaints at this time. Objective Physical Examination General Exam: Positive: Alert, Cooperative, No Acute Distress ENT Exam: Positive: Atraumatic, Mucous membr. moist/pink Neck Exam: Negative: JVD Chest Exam: Positive: Diminished, Negative: Rales, Rhonchi, Wheezing Heart Exam: Positive: Rate Normal, Regular Rhythm, Normal S1, Normal S2 Abdomen Exam: Positive: Soft, Negative: Tenderness Extremity Exam: Negative: Tenderness, Swelling Psych Exam: Positive: Oriented x 3 Assessment /Plan Plan/VTE VTE Prophylaxis Ordered?: Yes (lovenox SC) Plan Acute on chronic respiratory distress 2/2 chronic obstructive pulmonary disease (COPD) exacerbation. Patient initially noted to have diminished airway entry, wheezing on exam Down tapering dose of prednisone Cont Albuterol. Spiriva, Formoterol Dr. Barry of Pulmonary on board--input appreciated Patient on baseline 2L of oxygen at home Respiratory status is improving We will continue to monitor the patient's progress Diastolic congestive heart failure exacerbation. ECHO results from 2010 from outpatient reviewed--Stage [address] Luna/Basim office The patient did have decompensation of CHF here, s/p IV Lasix Her volume status has significantly improved, as has her respiratory status We will cont to monitor the patient's volume/respiratory status COPD exacerbation Cont management as noted above Hypertension, stable Cont current regimen Chronic Kidney Disease Stage III Baseline Serum creatinine appears to be between 1.0-1.2 based on previous records Serum Cr at baseline Constipation Continue Colace Dyslipidemia Continue statin GERD Continue Pepcid Deep vein thrombosis (DVT) prophylaxis Cont Lovenox SC Disposition-we will continue to have the patient work with physical therapy as her respiratory status improves for functional optimization. PFS on board for possible placement versus home with services VS, I&O, 24H, Fishbone Vital Signs/I&O Vital Signs Date Time Temp Pulse Resp B/P (MAP) Pulse Ox O2 Delivery O2 Flow Rate FiO2 03/19/17 10:39 66 99/55 03/19/17 06:00 97.7 18 98 Nasal Cannula 2.0 I&O- Last 24 Hours up to 6 AM 03/19/17 05:59 Intake Total 840 ml Output Total 1700 ml Balance -860 ml Laboratory Data Microbiology Microbiology 03/09/17 Blood Culture - Final, Complete NO GROWTH AFTER 5 DAYS 03/09/17 Influenza Virus Type A Antigen - Final, Complete 03/09/17 Influenza Virus Type B Antigen - Final, Complete JUANITO JURADO MD Mar 19, 2017 10:51
[2017-03-19] MEDS ORDERED: PERF20NE2 INH (15:25)
[2017-03-19] MEDS ORDERED: PRED10TA2 PO (15:25)
[2017-03-19] MEDS ORDERED: BUDE0.5S6 INH (15:25)
--- NOTE | 2017-03-19 18:09 | DS.PDOC ---
Discharge Summary General Date of Admission Mar 12, 2017 at 11:28 Date of Discharge 03/19/17 Attending Physician: YOU DOE MD [facility] Specialist/Consultants Involve: Derek CONROY MD Discharge Summary PROCEDURES PERFORMED DURING STAY: None. ADMITTING DIAGNOSES: 1. . Acute on chronic hypoxic failure secondary to COPD exacerbation 2. . Decompensated Congestive heart failure DISCHARGE DIAGNOSES: 1. . Acute on chronic hypoxic failure secondary to COPD exacerbation 2. . Decompensated Congestive heart failure COMPLICATIONS/CHIEF COMPLAINT: Acute Respiratory Failure With Hypoxia. HISTORY OF PRESENT ILLNESS: . 81-year-old female with past medical history of COPD with severe airflow obstruction, hypertension, and congestive heart failure presents to the ER with a chief complaint of shortness of breath. The patient stated that she noticed a progressive worsening of shortness of breath over the last few days prior to her presentation to the ER. However, the patient states that she was getting up to go to the bathroom when she suddenly felt a worsening shortness of breath. She denied any complaints of fevers, chills, dizziness, headache, blurred vision , chest pain, abdominal pain, or any nausea/vomiting/diarrhea. The patient denied any complaints of worsening orthopnea, or lower extremity swelling. In the ER, the patient was noted to have hypercapnic respiratory failure with CO2 level of 59. A chest x-ray revealed hyperinflation of lungs and findings consistent with COPD. The patient was admitted to the hospitalist service for further evaluation and management. During hospitalization, the patient was treated with a tapering dose of IV steroids which was subsequently transitioned to by mouth. In addition, the patient was noted to be fluid overloaded, and she did receive some Lasix therapy. Over the ensuing days the patient's volume/respiratory status markedly improved. The patient's chronic comorbidities were treated as previously prescribed. She continued to work with physical therapy for functional optimization. At this time, the patient states that she is feeling much better and is eager to return home. The patient has been cleared by physical therapy to return home. At this time, I have advised the patient follow-up with her primary care physician within one week. In addition, the patient has been advised to return to the ER for any acute emergencies. DISCHARGE MEDICATIONS: Please see below. ALLERGIES: Please see below. PHYSICAL EXAMINATION ON DISCHARGE: VITAL SIGNS: Please see below. General Exam: Positive: Alert, Cooperative, No Acute Distress ENT Exam: Positive: Atraumatic, Mucous membr. moist/pink Neck Exam: Negative: JVD Chest Exam: Positive: Diminished, Negative: Rales, Rhonchi, Wheezing Heart Exam: Positive: Rate Normal, Regular Rhythm, Normal S1, Normal S2 Abdomen Exam: Positive: Soft, Negative: Tenderness Extremity Exam: Negative: Tenderness, Swelling Psych Exam: Positive: Oriented x 3 LABORATORY DATA: Please see below. IMAGING: Chest one-view HISTORY: Dyspnea Comparison: 05/08/2016 The lungs are hyperinflated. An increase in interstitial markings is present in the lung. The heart is normal in size. The pulmonary vasculature is normal in appearance. Impression: COPD. PROGNOSIS: Long-term prognosis poor ACTIVITY: As tolerated. DIET: . 2 g low sodium diet DISCHARGE PLAN: Home DISPOSITION: . DISCHARGE INSTRUCTIONS: 1. . Follow-up with primary care physician within one week 2. . Complete course of steroid therapy as prescribed 3. . Return to the ER for any acute emergencies DISCHARGE CONDITION: Stable. TIME SPENT ON DISCHARGE: Greater than 30 minutes. Vital Signs/I&Os Vital Signs Date Time Temp Pulse Resp B/P (MAP) Pulse Ox O2 Delivery O2 Flow Rate FiO2 03/19/17 10:39 66 99/55 03/19/17 09:00 Nasal Cannula 2.0 03/19/17 06:00 97.7 18 98 I&O- Last 24 Hours up to 6 AM 03/19/17 05:59 Intake Total 840 ml Output Total 1700 ml Balance -860 ml Microbiology Microbiology 03/09/17 Blood Culture - Final, Complete NO GROWTH AFTER 5 DAYS 03/09/17 Influenza Virus Type A Antigen - Final, Complete 03/09/17 Influenza Virus Type B Antigen - Final, Complete Discharge Medications Scheduled Bisoprolol Fumarate (Bisoprolol Fumarate) 5 Mg Tab, 2.5 MG PO DAILY, (Reported) Budesonide (Budesonide) 0.5 Mg/2 Ml Neb, 0.5 MG INH RBID Formoterol Fumarate Dihydrate (Perforomist) 20 Mcg/2 Ml Neb, 20 MCG INH RBID Lisinopril (Lisinopril) 40 Mg Tab, 40 MG PO DAILY, (Reported) Prednisone (Prednisone) 10 Mg Tab, 10 MG PO ASDIRECTED Take 2 Tabs PO daily for three days then stop. Take 1 Tab PO Daily for 3 days then stop. Simvastatin - High Dose (Simvastatin) 40 Mg Tab, 40 MG PO QHS, (Reported) Tiotropium Smoot Monohydrate (Spiriva Handihaler) 18 Mcg Cap, 18 MCG INH DAILY , (Reported) Scheduled PRN Albuterol Sulfate (Ventolin Hfa) 200 Puff/8 Gm Aers, 2 PUFFS PO Q4H PRN for SHORTNESS OF BREATH, (Reported) Allergies Coded Allergies: No Known Allergies (Unverified , 03/09/17) JUANITO JURADO MD Mar 19, 2017 18:09
[2017-03-21] MEDS ORDERED: predniSONE 10 MG TAB PO SCH (09:00)
== END 2017-03-19 18:17 | disposition home health service (06) | DRG 189 ==
LOC: EDBD 02:31 → M ED 02:31 → M ED INP 02:33 → M MSPAV 14:04 → M ICU 03-11 06:32 → OBSVTOIN 03-12 11:28 → M MSPAV 03-13 18:31
PROVIDERS: ADMIT Hospitalist; ATTEND Internal Medicine
DX: J96.01 Acute respiratory failure with hypoxia (principal); I50.41 Acute combined systolic (congestive) and diastolic (congestive) heart failure; J44.1 Chronic obstructive pulmonary disease with (acute) exacerbation; N17.9 Acute kidney failure, unspecified; I13.0 Hypertensive heart and chronic kidney disease with heart failure and stage 1 through stage 4 chronic kidney disease, or unspecified chronic kidney disease; Z79.899 Other long term (current) drug therapy; I34.0 Nonrheumatic mitral (valve) insufficiency; F17.210 Nicotine dependence, cigarettes, uncomplicated; I25.2 Old myocardial infarction; E78.5 Hyperlipidemia, unspecified; J96.02 Acute respiratory failure with hypercapnia; N18.3 Chronic kidney disease, stage 3 (moderate); K59.00 Constipation, unspecified; K21.9 Gastro-esophageal reflux disease without esophagitis

== ENCOUNTER → 2017-11-21 | Outpatient (REF) ==
[2017-11-21 08:12] LABS: ANION GAP 3 MEQ/L (8-16); BLOOD UREA NITROGEN 31 MG/DL (7-18); CALCIUM LEVEL 8.5 MG/DL (8.8-10.2); CARBON DIOXIDE LEVEL 32 MEQ/L (21-32); CHLORIDE LEVEL 103 MEQ/L (98-107); CREATININE FOR GFR 1.25 MG/DL (0.55-1.30); GLOMERULAR FILTRATION RATE 43.7 (>32); GLUCOSE, FASTING 109 MG/DL (70-100); POTASSIUM SERUM 5.1 MEQ/L (3.5-5.1); SODIUM LEVEL 138 MEQ/L (136-145)
== END ==
LOC: SKLAB5 07:17
DX: I50.9 Heart failure, unspecified (principal)

== ENCOUNTER 2018-01-28 14:51 | Inpatient (IN) | payer MEDICARE, OTHER ==
[2018-01-28 16:46] LABS: BASO % 0.1 % (0.0-1.0); EOS # 0.1 10^3/uL (0.0-0.50); EOS % 0.9 % (0.0-3.0); HEMATOCRIT 35.3 % (36.0-47.0); HEMOGLOBIN 11.4 g/dl (12.0-15.5); IMMATURE GRANULOCYTE % 0.3 % (0-3.0); LYMPH # 0.6 10^3/uL (1.5-4.5); MEAN CORPUSCULAR HEMOGLOBIN 29.7 pg (27.0-33.0); MEAN CORPUSCULAR HGB CONC 32.3 g/dl (32.0-36.5); MEAN CORPUSCULAR VOLUME 91.9 fl (80.0-96.0); MONO # 0.6 10^3/uL (0.0-0.8); MONO % 8.9 % (0.0-5.0); NEUTROPHILS # 5.7 10^3/uL (1.8-7.7); NEUTROPHILS % 81.8 % (36.0-66.0); PLATELET COUNT, AUTOMATED 276 10^3/uL (150-450); RED BLOOD COUNT 3.84 10^6/uL (4.00-5.40); RED CELL DISTRIBUTION WIDTH 13.4 % (11.5-14.5)
[2018-01-28 17:04] LABS: ANION GAP 8 MEQ/L (8-16); BLOOD UREA NITROGEN 26 MG/DL (7-18); CALCIUM LEVEL 8.8 MG/DL (8.8-10.2); CARBON DIOXIDE LEVEL 31 MEQ/L (21-32); CHLORIDE LEVEL 101 MEQ/L (98-107); CPK CREATINE PHOSPHOKINASE 92 U/L (26-192); CREATININE FOR GFR 1.02 MG/DL (0.55-1.30); GLOMERULAR FILTRATION RATE 55.2 (>32); GLUCOSE, FASTING 138 MG/DL (70-100); POTASSIUM SERUM 3.9 MEQ/L (3.5-5.1); SODIUM LEVEL 140 MEQ/L (136-145); TROPONIN I < 0.02 NG/ML (< 0.10)
[2018-01-28 17:05] LABS: CK-MB VALUE MASS 2.2 NG/ML (<3.6); MB/CK RELATIVE INDEX 2.39 (< OR =4)
[2018-01-28 17:05] LABS: LACTIC ACID SEPSIS PROTOCOL 1.3 MMOL/L (0.4-2.0)
[2018-01-28] MEDS: IPRATROPIUM 0.5MG/ALBUTEROL 2.5MG INH SOL UD 3ML (DUONEB)(J7620) NEB ×3 (17:35→18:15)
[2018-01-28 17:52] LABS: ABG BASE EXCESS 2.4 (-2.0-2.0); ABG HCO3 27.8 MEQ/L (22.0-26.0); ABG O2 SATURATION 98.5 % (95.0-99.0); ABG PARTIAL PRESSURE CO2 46.5 mmHg (35.0-45.0); ABG PARTIAL PRESSURE O2 121.8 mmHg (75.0-100.0); ABG STANDARD HCO3 26.6 MEQ/L (22.0-26.0); ABG TOTAL CO2 29.2 MEQ/L (23.0-31.0); ABG pH (ARTERIAL) 7.394 UNITS (7.350-7.450)
[2018-01-28] MEDS: NS 1,000 ML IV (17:53)
[2018-01-28] MEDS: methylPREDNISolone INJ 125 MG/2 ML VIAL (J2930) IV ×2 (17:53→23:37)
[2018-01-28] MEDS ORDERED: ACETAMINOPHEN TAB 650MG DOSE (2X325MG) PO (22:00)
[2018-01-28] MEDS ORDERED: ALBUTEROL SULFATE 2.5 MG/0.5 ML INH NEB SOLN INH (22:15)
[2018-01-28] MEDS: SIMVASTATIN 20 MG TAB PO (22:23)
[2018-01-28] MEDS: cefTRIAXone SOD 1 GM in D5W MINI-BAG PLUS 50 ML IV (23:18)
[2018-01-28] MEDS: AZITHROMYCIN INJ 500 MG, VIAL MATE ADAPTER 1 EACH in D5W 250 ML IV (23:33)
[2018-01-28 23:45] LABS: BEDSIDE GLUCOSE 220 MG/DL (83-110)
[2018-01-29] MEDS: methylPREDNISolone INJ 125 MG/2 ML VIAL (J2930) IV ×4 (06:15→23:09)
[2018-01-29 06:19] LABS: HEMATOCRIT 29.9 % (36.0-47.0); IMMATURE GRANULOCYTE % 0.3 % (0-3.0); LYMPH # 0.3 10^3/uL (1.5-4.5); LYMPH % 7.7 % (24.0-44.0); MEAN CORPUSCULAR HEMOGLOBIN 30.2 pg (27.0-33.0); MEAN CORPUSCULAR HGB CONC 33.4 g/dl (32.0-36.5); MEAN CORPUSCULAR VOLUME 90.3 fl (80.0-96.0); NEUTROPHILS # 3.5 10^3/uL (1.8-7.7); PLATELET COUNT, AUTOMATED 238 10^3/uL (150-450); RED BLOOD COUNT 3.31 10^6/uL (4.00-5.40); RED CELL DISTRIBUTION WIDTH 13.1 % (11.5-14.5); WHITE BLOOD COUNT 3.9 10^3/uL (4.0-10.0)
[2018-01-29 06:35] LABS: ANION GAP 10 MEQ/L (8-16); BLOOD UREA NITROGEN 24 MG/DL (7-18); CALCIUM LEVEL 8.3 MG/DL (8.8-10.2); CARBON DIOXIDE LEVEL 27 MEQ/L (21-32); CHLORIDE LEVEL 107 MEQ/L (98-107); CREATININE FOR GFR 0.78 MG/DL (0.55-1.30); GLOMERULAR FILTRATION RATE > 60.0 (>32); GLUCOSE, FASTING 129 MG/DL (70-100); POTASSIUM SERUM 3.9 MEQ/L (3.5-5.1); SODIUM LEVEL 144 MEQ/L (136-145)
[2018-01-29] MEDS: IPRATROPIUM 0.5MG/ALBUTEROL 2.5MG INH SOL UD 3ML (DUONEB)(J7620) NEB ×4 (08:00→19:32)
[2018-01-29] MEDS: TIOTROPIUM INHALER/CAPSULE (SPIRIVA) INH (08:35)
[2018-01-29] MEDS: ADVAIR HFA 230/21MCG INHALER INH ×2 (08:36→19:32)
[2018-01-29] MEDS: ENOXAPARIN 30 MG/0.3 ML SYR (J1650) SC (09:54)
[2018-01-29] MEDS: BISOPROLOL FUM 2.5 MG PER 1/2TAB PO (09:55)
[2018-01-29] MEDS: LISINOPRIL 20 MG TAB PO (09:55)
[2018-01-29] MEDS: PANTOPRAZOLE 40MG TAB (PROTONIX) PO (09:56)
[2018-01-29] MEDS: SPIRONOLACTONE 12.5MG PER 1/2 TABLET PO (10:27)
[2018-01-29] MEDS: cefTRIAXone SOD 1 GM in D5W MINI-BAG PLUS 50 ML IV (21:55)
[2018-01-29] MEDS: SIMVASTATIN 20 MG TAB PO (21:55)
[2018-01-29] MEDS: AZITHROMYCIN INJ 500 MG, VIAL MATE ADAPTER 1 EACH in D5W 250 ML IV (23:09)
[2018-01-30] MEDS: methylPREDNISolone INJ 125 MG/2 ML VIAL (J2930) IV (06:00)
[2018-01-30 06:18] LABS: BASO % 0.1 % (0.0-1.0); HEMATOCRIT 30.6 % (36.0-47.0); HEMOGLOBIN 9.9 g/dl (12.0-15.5); IMMATURE GRANULOCYTE % 0.6 % (0-3.0); LYMPH # 0.4 10^3/uL (1.5-4.5); LYMPH % 2.8 % (24.0-44.0); MEAN CORPUSCULAR HEMOGLOBIN 29.8 pg (27.0-33.0); MEAN CORPUSCULAR HGB CONC 32.4 g/dl (32.0-36.5); MEAN CORPUSCULAR VOLUME 92.2 fl (80.0-96.0); MONO # 0.5 10^3/uL (0.0-0.8); MONO % 3.1 % (0.0-5.0); NEUTROPHILS # 13.5 10^3/uL (1.8-7.7); NEUTROPHILS % 93.4 % (36.0-66.0); PLATELET COUNT, AUTOMATED 273 10^3/uL (150-450); RED BLOOD COUNT 3.32 10^6/uL (4.00-5.40); RED CELL DISTRIBUTION WIDTH 13.1 % (11.5-14.5); WHITE BLOOD COUNT 14.4 10^3/uL (4.0-10.0)
[2018-01-30 06:39] LABS: ANION GAP 8 MEQ/L (8-16); BLOOD UREA NITROGEN 29 MG/DL (7-18); CALCIUM LEVEL 8.9 MG/DL (8.8-10.2); CARBON DIOXIDE LEVEL 28 MEQ/L (21-32); CHLORIDE LEVEL 108 MEQ/L (98-107); CREATININE FOR GFR 0.96 MG/DL (0.55-1.30); GLOMERULAR FILTRATION RATE 59.2 (>32); GLUCOSE, FASTING 139 MG/DL (70-100); POTASSIUM SERUM 4.1 MEQ/L (3.5-5.1); SODIUM LEVEL 144 MEQ/L (136-145)
[2018-01-30] MEDS: IPRATROPIUM 0.5MG/ALBUTEROL 2.5MG INH SOL UD 3ML (DUONEB)(J7620) NEB (07:01)
[2018-01-30] MEDS: TIOTROPIUM INHALER/CAPSULE (SPIRIVA) INH (07:02)
[2018-01-30] MEDS: ADVAIR HFA 230/21MCG INHALER INH ×2 (07:03→19:36)
[2018-01-30] MEDS: LISINOPRIL 20 MG TAB PO (09:01)
[2018-01-30] MEDS: PANTOPRAZOLE 40MG TAB (PROTONIX) PO (09:01)
[2018-01-30] MEDS: SPIRONOLACTONE 12.5MG PER 1/2 TABLET PO (09:01)
[2018-01-30] MEDS: BISOPROLOL FUM 2.5 MG PER 1/2TAB PO (09:02)
[2018-01-30] MEDS: ENOXAPARIN 30 MG/0.3 ML SYR (J1650) SC (09:02)
[2018-01-30] MEDS: ATENOLOL 25 MG TAB PO (10:15)
[2018-01-30] MEDS: LEVALBUTEROL 1.25 MG/0.5 ML CONCENTRATE NEB INH ×4 (11:16→23:21)
[2018-01-30] MEDS: methylPREDNISolone INJ 40 MG/1 ML VIAL (J2920) IV ×2 (12:05→18:47)
[2018-01-30] MEDS: DIGOXIN 0.125 MG TAB PO (12:05)
[2018-01-30] MEDS ORDERED: ISOVUE-370 76% 100ML VIAL (Q9967) As Ordered (14:23)
[2018-01-30 14:37] LABS: NT-PRO BNP 2803 PG/ML (<450)
[2018-01-30] MEDS: FUROSEMIDE 40 MG/4 ML VIAL (J1940) IV (14:40)
[2018-01-30] MEDS: ATENOLOL 12.5MG PER 1/2 TABLET PO (14:41)
[2018-01-30] MEDS: cefTRIAXone SOD 1 GM in D5W MINI-BAG PLUS 50 ML IV (20:19)
[2018-01-30] MEDS: SIMVASTATIN 20 MG TAB PO (20:19)
[2018-01-30] MEDS: AZITHROMYCIN INJ 500 MG, VIAL MATE ADAPTER 1 EACH in D5W 250 ML IV (22:43)
[2018-01-31] MEDS: methylPREDNISolone INJ 40 MG/1 ML VIAL (J2920) IV ×3 (03:16→18:22)
[2018-01-31] MEDS: LEVALBUTEROL 1.25 MG/0.5 ML CONCENTRATE NEB INH ×6 (04:00→23:39)
[2018-01-31] MEDS ORDERED: ATENOLOL 25 MG TAB PO ×2 (06:00→09:00)
[2018-01-31] MEDS ORDERED: DIGOXIN 0.125 MG TAB PO (06:02)
[2018-01-31] MEDS ORDERED: PILL CRUSHER/CUTTER 1 EACH XX (06:15)
[2018-01-31 06:19] LABS: BASO % 0.1 % (0.0-1.0); HEMATOCRIT 31.6 % (36.0-47.0); HEMOGLOBIN 10.1 g/dl (12.0-15.5); IMMATURE GRANULOCYTE % 0.8 % (0-3.0); LYMPH # 0.3 10^3/uL (1.5-4.5); LYMPH % 2.2 % (24.0-44.0); MEAN CORPUSCULAR HEMOGLOBIN 29.8 pg (27.0-33.0); MEAN CORPUSCULAR VOLUME 93.2 fl (80.0-96.0); MONO # 0.5 10^3/uL (0.0-0.8); NEUTROPHILS # 12.4 10^3/uL (1.8-7.7); NEUTROPHILS % 92.9 % (36.0-66.0); PLATELET COUNT, AUTOMATED 289 10^3/uL (150-450); RED BLOOD COUNT 3.39 10^6/uL (4.00-5.40); RED CELL DISTRIBUTION WIDTH 13.2 % (11.5-14.5); WHITE BLOOD COUNT 13.3 10^3/uL (4.0-10.0)
[2018-01-31 06:20] LABS: POSITIVE DIFF POS FLAG
[2018-01-31] MEDS: ATENOLOL 25 MG TAB PO (06:41)
[2018-01-31 06:55] LABS: ANION GAP 5 MEQ/L (8-16); BLOOD UREA NITROGEN 41 MG/DL (7-18); CALCIUM LEVEL 8.8 MG/DL (8.8-10.2); CARBON DIOXIDE LEVEL 37 MEQ/L (21-32); CHLORIDE LEVEL 99 MEQ/L (98-107); CREATININE FOR GFR 1.17 MG/DL (0.55-1.30); DIGOXIN LEVEL 0.3 NG/ML (0.5-2.0); GLOMERULAR FILTRATION RATE 47.1 (>32); GLUCOSE, FASTING 120 MG/DL (70-100); POTASSIUM SERUM 4.2 MEQ/L (3.5-5.1); SODIUM LEVEL 141 MEQ/L (136-145)
[2018-01-31] MEDS: ADVAIR HFA 230/21MCG INHALER INH ×2 (07:57→21:16)
[2018-01-31] MEDS: TIOTROPIUM INHALER/CAPSULE (SPIRIVA) INH (07:58)
[2018-01-31] MEDS: LISINOPRIL 20 MG TAB PO (08:35)
[2018-01-31] MEDS: SPIRONOLACTONE 12.5MG PER 1/2 TABLET PO (08:36)
[2018-01-31] MEDS: DIGOXIN 0.125 MG TAB PO (08:36)
[2018-01-31] MEDS: ENOXAPARIN 30 MG/0.3 ML SYR (J1650) SC (08:37)
[2018-01-31] MEDS: PANTOPRAZOLE 40MG TAB (PROTONIX) PO (08:37)
[2018-01-31] MEDS: SIMVASTATIN 20 MG TAB PO (20:06)
[2018-02-01] MEDS: methylPREDNISolone INJ 40 MG/1 ML VIAL (J2920) IV (02:22)
[2018-02-01] MEDS: LEVALBUTEROL 1.25 MG/0.5 ML CONCENTRATE NEB INH ×7 (03:58→23:04)
[2018-02-01] MEDS: MOXIFLOXACIN 400 MG TAB PO (05:13)
[2018-02-01 06:34] LABS: ANION GAP 7 MEQ/L (8-16); BLOOD UREA NITROGEN 42 MG/DL (7-18); CALCIUM LEVEL 8.6 MG/DL (8.8-10.2); CARBON DIOXIDE LEVEL 34 MEQ/L (21-32); CHLORIDE LEVEL 101 MEQ/L (98-107); CREATININE FOR GFR 0.98 MG/DL (0.55-1.30); DIGOXIN LEVEL 0.6 NG/ML (0.5-2.0); GLOMERULAR FILTRATION RATE 57.8 (>32); GLUCOSE, FASTING 140 MG/DL (70-100); POTASSIUM SERUM 4.3 MEQ/L (3.5-5.1); SODIUM LEVEL 142 MEQ/L (136-145)
[2018-02-01] MEDS: FLUCONAZOLE 100 MG TAB PO (06:35)
[2018-02-01] MEDS: TIOTROPIUM INHALER/CAPSULE (SPIRIVA) INH (07:35)
[2018-02-01] MEDS: ADVAIR HFA 230/21MCG INHALER INH ×2 (07:35→19:30)
[2018-02-01] MEDS: SPIRONOLACTONE 12.5MG PER 1/2 TABLET PO (09:18)
[2018-02-01] MEDS: ATENOLOL 25 MG TAB PO (09:19)
[2018-02-01] MEDS: LISINOPRIL 20 MG TAB PO (09:19)
[2018-02-01] MEDS: PANTOPRAZOLE 40MG TAB (PROTONIX) PO (09:20)
[2018-02-01] MEDS: APIXABAN 2.5 MG TAB (ELIQUIS) PO ×2 (09:20→20:18)
[2018-02-01] MEDS: DIGOXIN 0.125 MG TAB PO (09:20)
[2018-02-01] MEDS: FUROSEMIDE 20 MG TAB PO (11:46)
[2018-02-01] MEDS: predniSONE 20 MG TAB PO ×3 (11:46→20:18)
[2018-02-01] MEDS: SIMVASTATIN 20 MG TAB PO (20:18)
[2018-02-02] MEDS: LEVALBUTEROL 1.25 MG/0.5 ML CONCENTRATE NEB INH ×6 (03:38→23:30)
[2018-02-02] MEDS: MOXIFLOXACIN 400 MG TAB PO (05:27)
[2018-02-02 06:31] LABS: DIGOXIN LEVEL 0.9 NG/ML (0.5-2.0)
[2018-02-02] MEDS: TIOTROPIUM INHALER/CAPSULE (SPIRIVA) INH (07:28)
[2018-02-02] MEDS: ADVAIR HFA 230/21MCG INHALER INH ×2 (07:28→20:01)
[2018-02-02] MEDS: SPIRONOLACTONE 12.5MG PER 1/2 TABLET PO (08:19)
[2018-02-02] MEDS: FLUCONAZOLE 100 MG TAB PO (08:19)
[2018-02-02] MEDS: PANTOPRAZOLE 40MG TAB (PROTONIX) PO (08:19)
[2018-02-02] MEDS: DIGOXIN 0.125 MG TAB PO (08:19)
[2018-02-02] MEDS: APIXABAN 2.5 MG TAB (ELIQUIS) PO ×2 (08:19→20:42)
[2018-02-02] MEDS: LISINOPRIL 20 MG TAB PO (08:19)
[2018-02-02] MEDS: ATENOLOL 25 MG TAB PO (08:20)
[2018-02-02] MEDS: predniSONE 20 MG TAB PO ×3 (08:20→20:42)
[2018-02-02] MEDS: SIMVASTATIN 20 MG TAB PO (20:42)
[2018-02-03 05:40] LABS: HEMATOCRIT 31.8 % (36.0-47.0); HEMOGLOBIN 10.1 g/dl (12.0-15.5); MEAN CORPUSCULAR HEMOGLOBIN 29.8 pg (27.0-33.0); MEAN CORPUSCULAR HGB CONC 31.8 g/dl (32.0-36.5); MEAN CORPUSCULAR VOLUME 93.8 fl (80.0-96.0); PLATELET COUNT, AUTOMATED 276 10^3/uL (150-450); RED BLOOD COUNT 3.39 10^6/uL (4.00-5.40); RED CELL DISTRIBUTION WIDTH 12.9 % (11.5-14.5); WHITE BLOOD COUNT 11.7 10^3/uL (4.0-10.0)
[2018-02-03] MEDS: LEVALBUTEROL 1.25 MG/0.5 ML CONCENTRATE NEB INH ×5 (08:00→23:19)
[2018-02-03] MEDS: TIOTROPIUM INHALER/CAPSULE (SPIRIVA) INH (08:09)
[2018-02-03] MEDS: ADVAIR HFA 230/21MCG INHALER INH ×2 (08:09→19:21)
[2018-02-03] MEDS: predniSONE 20 MG TAB PO ×3 (08:12→20:03)
[2018-02-03] MEDS: APIXABAN 2.5 MG TAB (ELIQUIS) PO ×2 (08:12→20:03)
[2018-02-03] MEDS: DIGOXIN 0.125 MG TAB PO (08:12)
[2018-02-03] MEDS: FLUCONAZOLE 100 MG TAB PO (08:12)
[2018-02-03] MEDS: LISINOPRIL 20 MG TAB PO (08:13)
[2018-02-03] MEDS: SPIRONOLACTONE 12.5MG PER 1/2 TABLET PO (08:13)
[2018-02-03] MEDS: PANTOPRAZOLE 40MG TAB (PROTONIX) PO (08:13)
[2018-02-03] MEDS: ATENOLOL 25 MG TAB PO (08:13)
[2018-02-03] MEDS: SIMVASTATIN 20 MG TAB PO (20:03)
[2018-02-04] MEDS: LEVALBUTEROL 1.25 MG/0.5 ML CONCENTRATE NEB INH ×6 (03:05→23:36)
[2018-02-04 06:34] LABS: DIGOXIN LEVEL 1.1 NG/ML (0.5-2.0)
[2018-02-04] MEDS: TIOTROPIUM INHALER/CAPSULE (SPIRIVA) INH (08:28)
[2018-02-04] MEDS: ADVAIR HFA 230/21MCG INHALER INH ×2 (08:28→21:00)
[2018-02-04] MEDS: predniSONE 20 MG TAB PO ×3 (09:40→20:31)
[2018-02-04] MEDS: SPIRONOLACTONE 12.5MG PER 1/2 TABLET PO (09:40)
[2018-02-04] MEDS: DIGOXIN 0.125 MG TAB PO (09:41)
[2018-02-04] MEDS: ATENOLOL 25 MG TAB PO (09:41)
[2018-02-04] MEDS: FLUCONAZOLE 100 MG TAB PO (09:42)
[2018-02-04] MEDS: LISINOPRIL 20 MG TAB PO (09:42)
[2018-02-04] MEDS: APIXABAN 2.5 MG TAB (ELIQUIS) PO ×2 (09:42→20:31)
[2018-02-04] MEDS: PANTOPRAZOLE 40MG TAB (PROTONIX) PO (09:42)
[2018-02-04] MEDS: ALPRAZolam 0.25 MG TAB PO ×2 (13:19→18:02)
[2018-02-04] MEDS: SIMVASTATIN 20 MG TAB PO (20:31)
[2018-02-05] MEDS: LEVALBUTEROL 1.25 MG/0.5 ML CONCENTRATE NEB INH ×5 (04:00→19:25)
[2018-02-05] MEDS: TIOTROPIUM INHALER/CAPSULE (SPIRIVA) INH (07:46)
[2018-02-05] MEDS: ADVAIR HFA 230/21MCG INHALER INH ×2 (07:46→19:25)
[2018-02-05 08:12] LABS: ANION GAP 4 MEQ/L (8-16); BLOOD UREA NITROGEN 42 MG/DL (7-18); CALCIUM LEVEL 7.8 MG/DL (8.8-10.2); CARBON DIOXIDE LEVEL 38 MEQ/L (21-32); CHLORIDE LEVEL 104 MEQ/L (98-107); CREATININE FOR GFR 0.94 MG/DL (0.55-1.30); GLOMERULAR FILTRATION RATE > 60.0 (>32); GLUCOSE, FASTING 143 MG/DL (70-100); POTASSIUM SERUM 4.9 MEQ/L (3.5-5.1); SODIUM LEVEL 146 MEQ/L (136-145)
[2018-02-05] MEDS: PANTOPRAZOLE 40MG TAB (PROTONIX) PO (09:09)
[2018-02-05] MEDS: SPIRONOLACTONE 12.5MG PER 1/2 TABLET PO (09:09)
[2018-02-05] MEDS: LISINOPRIL 20 MG TAB PO (09:09)
[2018-02-05] MEDS: FLUCONAZOLE 100 MG TAB PO (09:09)
[2018-02-05] MEDS: ATENOLOL 25 MG TAB PO (09:10)
[2018-02-05] MEDS: APIXABAN 2.5 MG TAB (ELIQUIS) PO ×2 (09:10→20:59)
[2018-02-05] MEDS: predniSONE 20 MG TAB PO ×2 (09:10→20:59)
[2018-02-05] MEDS: DIGOXIN 0.125 MG TAB PO (09:11)
[2018-02-05] MEDS: ALPRAZolam 0.25 MG TAB PO ×2 (12:40→21:02)
[2018-02-05 14:30] LABS: QUANTIFERON GOLD TB Negative (Negative); TB Test (QFT) Antigen 0.05 IU/mL (.); TB Test (QFT) Nil 0.05 IU/mL (.)
[2018-02-05] MEDS: SIMVASTATIN 20 MG TAB PO (21:00)
[2018-02-06] MEDS: LEVALBUTEROL 1.25 MG/0.5 ML CONCENTRATE NEB INH ×6 (03:25→20:00)
[2018-02-06 05:36] LABS: BASO % 0.1 % (0.0-1.0); HEMATOCRIT 34.3 % (36.0-47.0); HEMOGLOBIN 10.7 g/dl (12.0-15.5); IMMATURE GRANULOCYTE % 2.4 % (0-3.0); LYMPH # 0.3 10^3/uL (1.5-4.5); LYMPH % 1.8 % (24.0-44.0); MEAN CORPUSCULAR HEMOGLOBIN 30.1 pg (27.0-33.0); MEAN CORPUSCULAR HGB CONC 31.2 g/dl (32.0-36.5); MEAN CORPUSCULAR VOLUME 96.3 fl (80.0-96.0); MONO # 0.5 10^3/uL (0.0-0.8); MONO % 3.3 % (0.0-5.0); NEUTROPHILS # 13.6 10^3/uL (1.8-7.7); NEUTROPHILS % 92.4 % (36.0-66.0); PLATELET COUNT, AUTOMATED 271 10^3/uL (150-450); RED BLOOD COUNT 3.56 10^6/uL (4.00-5.40); RED CELL DISTRIBUTION WIDTH 13.2 % (11.5-14.5); WHITE BLOOD COUNT 14.7 10^3/uL (4.0-10.0)
[2018-02-06 05:48] LABS: POSITIVE DIFF POS FLAG
[2018-02-06 05:51] LABS: ANION GAP 3 MEQ/L (8-16); BLOOD UREA NITROGEN 47 MG/DL (7-18); CALCIUM LEVEL 7.8 MG/DL (8.8-10.2); CARBON DIOXIDE LEVEL 37 MEQ/L (21-32); CHLORIDE LEVEL 105 MEQ/L (98-107); CREATININE FOR GFR 1.12 MG/DL (0.55-1.30); GLOMERULAR FILTRATION RATE 49.6 (>32); GLUCOSE, FASTING 126 MG/DL (70-100); SODIUM LEVEL 145 MEQ/L (136-145)
[2018-02-06 05:55] LABS: POTASSIUM SERUM 5.2 MEQ/L (3.5-5.1)
[2018-02-06] MEDS: ADVAIR HFA 230/21MCG INHALER INH ×2 (08:19→21:01)
[2018-02-06] MEDS: TIOTROPIUM INHALER/CAPSULE (SPIRIVA) INH (08:20)
[2018-02-06] MEDS: SPIRONOLACTONE 12.5MG PER 1/2 TABLET PO (09:59)
[2018-02-06] MEDS: PANTOPRAZOLE 40MG TAB (PROTONIX) PO (10:00)
[2018-02-06] MEDS: FLUCONAZOLE 100 MG TAB PO (10:00)
[2018-02-06] MEDS: predniSONE 20 MG TAB PO ×2 (10:00→20:08)
[2018-02-06] MEDS: DIGOXIN 0.125 MG TAB PO (10:00)
[2018-02-06] MEDS: LISINOPRIL 10 MG TAB PO (10:01)
[2018-02-06] MEDS: APIXABAN 2.5 MG TAB (ELIQUIS) PO ×2 (10:01→20:07)
[2018-02-06] MEDS: SIMVASTATIN 20 MG TAB PO (20:07)
[2018-02-07] MEDS: LEVALBUTEROL 1.25 MG/0.5 ML CONCENTRATE NEB INH ×8 (03:32→23:17)
[2018-02-07 06:28] LABS: BASO % 0.3 % (0.0-1.0); HEMATOCRIT 34.7 % (36.0-47.0); HEMOGLOBIN 10.8 g/dl (12.0-15.5); IMMATURE GRANULOCYTE % 2.8 % (0-3.0); LYMPH % 1.6 % (24.0-44.0); MEAN CORPUSCULAR HEMOGLOBIN 30.3 pg (27.0-33.0); MEAN CORPUSCULAR HGB CONC 31.1 g/dl (32.0-36.5); MEAN CORPUSCULAR VOLUME 97.5 fl (80.0-96.0); MONO # 0.4 10^3/uL (0.0-0.8); MONO % 2.9 % (0.0-5.0); NEUTROPHILS # 13.7 10^3/uL (1.8-7.7); NEUTROPHILS % 92.4 % (36.0-66.0); PLATELET COUNT, AUTOMATED 278 10^3/uL (150-450); RED BLOOD COUNT 3.56 10^6/uL (4.00-5.40); RED CELL DISTRIBUTION WIDTH 13.2 % (11.5-14.5); WHITE BLOOD COUNT 14.9 10^3/uL (4.0-10.0)
[2018-02-07 06:30] LABS: LYMPH # 0.2 10^3/uL (1.5-4.5); POSITIVE DIFF POS FLAG
[2018-02-07 06:58] LABS: ANION GAP 4 MEQ/L (8-16); BLOOD UREA NITROGEN 46 MG/DL (7-18); CALCIUM LEVEL 8.1 MG/DL (8.8-10.2); CARBON DIOXIDE LEVEL 37 MEQ/L (21-32); CHLORIDE LEVEL 102 MEQ/L (98-107); CREATININE FOR GFR 1.18 MG/DL (0.55-1.30); GLOMERULAR FILTRATION RATE 46.7 (>32); GLUCOSE, FASTING 128 MG/DL (70-100); SODIUM LEVEL 143 MEQ/L (136-145)
[2018-02-07 06:59] LABS: POTASSIUM SERUM 5.2 MEQ/L (3.5-5.1)
[2018-02-07] MEDS: ADVAIR HFA 230/21MCG INHALER INH ×2 (07:52→20:07)
[2018-02-07] MEDS: TIOTROPIUM INHALER/CAPSULE (SPIRIVA) INH (07:52)
[2018-02-07 08:34] LABS: DIGOXIN LEVEL 1.3 NG/ML (0.5-2.0)
[2018-02-07] MEDS: predniSONE 20 MG TAB PO (10:03)
[2018-02-07] MEDS: FLUCONAZOLE 100 MG TAB PO (10:03)
[2018-02-07] MEDS: DIGOXIN 0.125 MG TAB PO (10:06)
[2018-02-07] MEDS: PANTOPRAZOLE 40MG TAB (PROTONIX) PO (10:06)
[2018-02-07] MEDS: APIXABAN 2.5 MG TAB (ELIQUIS) PO ×2 (10:06→21:00)
[2018-02-07] MEDS: ALPRAZolam 0.25 MG TAB PO (18:17)
[2018-02-07] MEDS: SIMVASTATIN 20 MG TAB PO (21:00)
[2018-02-08] MEDS: LEVALBUTEROL 1.25 MG/0.5 ML CONCENTRATE NEB INH ×5 (03:56→20:00)
[2018-02-08 06:32] LABS: BASO % 0.1 % (0.0-1.0); IMMATURE GRANULOCYTE % 2.6 % (0-3.0); LYMPH # 0.4 10^3/uL (1.5-4.5); LYMPH % 2.6 % (24.0-44.0); MEAN CORPUSCULAR HEMOGLOBIN 30.3 pg (27.0-33.0); MEAN CORPUSCULAR HGB CONC 31.3 g/dl (32.0-36.5); MONO % 6.9 % (0.0-5.0); NEUTROPHILS # 13.3 10^3/uL (1.8-7.7); NEUTROPHILS % 87.8 % (36.0-66.0); PLATELET COUNT, AUTOMATED 240 10^3/uL (150-450); RED CELL DISTRIBUTION WIDTH 13.5 % (11.5-14.5); WHITE BLOOD COUNT 15.1 10^3/uL (4.0-10.0)
[2018-02-08 06:51] LABS: ANION GAP 7 MEQ/L (8-16); BLOOD UREA NITROGEN 39 MG/DL (7-18); CALCIUM LEVEL 8.1 MG/DL (8.8-10.2); CARBON DIOXIDE LEVEL 36 MEQ/L (21-32); CHLORIDE LEVEL 100 MEQ/L (98-107); CREATININE FOR GFR 0.95 MG/DL (0.55-1.30); GLUCOSE, FASTING 121 MG/DL (70-100); POTASSIUM SERUM 4.8 MEQ/L (3.5-5.1); SODIUM LEVEL 143 MEQ/L (136-145)
[2018-02-08] MEDS: TIOTROPIUM INHALER/CAPSULE (SPIRIVA) INH (07:25)
[2018-02-08] MEDS: ADVAIR HFA 230/21MCG INHALER INH ×2 (07:25→20:23)
[2018-02-08] MEDS: predniSONE 20 MG TAB PO (09:02)
[2018-02-08] MEDS: APIXABAN 2.5 MG TAB (ELIQUIS) PO ×2 (09:02→21:18)
[2018-02-08] MEDS: FLUCONAZOLE 100 MG TAB PO (09:02)
[2018-02-08] MEDS: PANTOPRAZOLE 40MG TAB (PROTONIX) PO (09:02)
[2018-02-08] MEDS: DIGOXIN 0.0625MG PER 1/2TABLET PO (09:32)
[2018-02-08] MEDS: FUROSEMIDE 20 MG TAB PO (11:49)
[2018-02-08] MEDS: LORazepam 0.5 MG TAB PO (16:03)
[2018-02-08] MEDS: SIMVASTATIN 20 MG TAB PO (21:18)
[2018-02-09] MEDS: LEVALBUTEROL 1.25 MG/0.5 ML CONCENTRATE NEB INH ×5 (04:25→19:17)
[2018-02-09 06:12] LABS: BASO % 0.2 % (0.0-1.0); HEMATOCRIT 33.1 % (36.0-47.0); HEMOGLOBIN 10.4 g/dl (12.0-15.5); IMMATURE GRANULOCYTE % 2.5 % (0-3.0); LYMPH # 0.7 10^3/uL (1.5-4.5); LYMPH % 4.4 % (24.0-44.0); MEAN CORPUSCULAR HEMOGLOBIN 30.7 pg (27.0-33.0); MEAN CORPUSCULAR HGB CONC 31.4 g/dl (32.0-36.5); MEAN CORPUSCULAR VOLUME 97.6 fl (80.0-96.0); MONO # 1.2 10^3/uL (0.0-0.8); MONO % 7.7 % (0.0-5.0); NEUTROPHILS % 85.2 % (36.0-66.0); PLATELET COUNT, AUTOMATED 224 10^3/uL (150-450); RED BLOOD COUNT 3.39 10^6/uL (4.00-5.40); RED CELL DISTRIBUTION WIDTH 13.7 % (11.5-14.5); WHITE BLOOD COUNT 15.3 10^3/uL (4.0-10.0)
[2018-02-09 06:24] LABS: ANION GAP 2 MEQ/L (8-16); BLOOD UREA NITROGEN 47 MG/DL (7-18); CALCIUM LEVEL 7.9 MG/DL (8.8-10.2); CARBON DIOXIDE LEVEL 43 MEQ/L (21-32); CHLORIDE LEVEL 100 MEQ/L (98-107); GLOMERULAR FILTRATION RATE 50.6 (>32); GLUCOSE, FASTING 92 MG/DL (70-100); POTASSIUM SERUM 5.1 MEQ/L (3.5-5.1); SODIUM LEVEL 145 MEQ/L (136-145)
[2018-02-09] MEDS: DIGOXIN 0.0625MG PER 1/2TABLET PO (09:10)
[2018-02-09] MEDS: FUROSEMIDE 20 MG TAB PO (09:11)
[2018-02-09] MEDS: PANTOPRAZOLE 40MG TAB (PROTONIX) PO (09:11)
[2018-02-09] MEDS: predniSONE 20 MG TAB PO (09:11)
[2018-02-09] MEDS: APIXABAN 2.5 MG TAB (ELIQUIS) PO ×2 (09:11→22:47)
[2018-02-09] MEDS: ADVAIR HFA 230/21MCG INHALER INH ×2 (11:59→19:15)
[2018-02-09] MEDS: TIOTROPIUM INHALER/CAPSULE (SPIRIVA) INH (11:59)
[2018-02-09] MEDS: LORazepam 0.5 MG TAB PO (19:56)
[2018-02-09] MEDS: SIMVASTATIN 20 MG TAB PO (22:47)
[2018-02-10] MEDS: LEVALBUTEROL 1.25 MG/0.5 ML CONCENTRATE NEB INH ×7 (00:10→23:37)
[2018-02-10 06:04] LABS: BASO % 0.2 % (0.0-1.0); EOS % 0.1 % (0.0-3.0); HEMATOCRIT 34.2 % (36.0-47.0); HEMOGLOBIN 10.6 g/dl (12.0-15.5); IMMATURE GRANULOCYTE % 2.2 % (0-3.0); LYMPH # 0.7 10^3/uL (1.5-4.5); LYMPH % 4.5 % (24.0-44.0); MEAN CORPUSCULAR HEMOGLOBIN 29.8 pg (27.0-33.0); MEAN CORPUSCULAR VOLUME 96.1 fl (80.0-96.0); MONO # 1.2 10^3/uL (0.0-0.8); MONO % 7.4 % (0.0-5.0); NEUTROPHILS # 13.6 10^3/uL (1.8-7.7); NEUTROPHILS % 85.6 % (36.0-66.0); PLATELET COUNT, AUTOMATED 224 10^3/uL (150-450); RED BLOOD COUNT 3.56 10^6/uL (4.00-5.40); RED CELL DISTRIBUTION WIDTH 13.4 % (11.5-14.5); WHITE BLOOD COUNT 15.9 10^3/uL (4.0-10.0)
[2018-02-10 06:18] LABS: ANION GAP 3 MEQ/L (8-16); BLOOD UREA NITROGEN 49 MG/DL (7-18); CALCIUM LEVEL 8.3 MG/DL (8.8-10.2); CARBON DIOXIDE LEVEL 42 MEQ/L (21-32); CHLORIDE LEVEL 95 MEQ/L (98-107); CREATININE FOR GFR 1.09 MG/DL (0.55-1.30); GLOMERULAR FILTRATION RATE 51.2 (>32); GLUCOSE, FASTING 99 MG/DL (70-100); POTASSIUM SERUM 4.8 MEQ/L (3.5-5.1); SODIUM LEVEL 140 MEQ/L (136-145)
[2018-02-10] MEDS: TIOTROPIUM INHALER/CAPSULE (SPIRIVA) INH (07:37)
[2018-02-10] MEDS: ADVAIR HFA 230/21MCG INHALER INH ×2 (07:37→19:51)
[2018-02-10] MEDS ORDERED: FUROSEMIDE 20 MG TAB PO (09:00)
[2018-02-10] MEDS: APIXABAN 2.5 MG TAB (ELIQUIS) PO ×2 (10:47→22:09)
[2018-02-10] MEDS: predniSONE 50 MG TAB PO (10:48)
[2018-02-10] MEDS: PANTOPRAZOLE 40MG TAB (PROTONIX) PO (10:48)
[2018-02-10] MEDS: DIGOXIN 0.0625MG PER 1/2TABLET PO (10:48)
[2018-02-10] MEDS: SENOKOT S TAB PO ×2 (12:45→22:09)
[2018-02-10] MEDS: MIRALAX *UNIT DOSE* 17GM PACKET PO (12:45)
[2018-02-10] MEDS: SIMVASTATIN 20 MG TAB PO (22:09)
[2018-02-11] MEDS: LEVALBUTEROL 1.25 MG/0.5 ML CONCENTRATE NEB INH ×6 (04:00→23:28)
[2018-02-11 06:40] LABS: BASO % 0.1 % (0.0-1.0); HEMATOCRIT 30.3 % (36.0-47.0); HEMOGLOBIN 9.5 g/dl (12.0-15.5); IMMATURE GRANULOCYTE % 1.8 % (0-3.0); LYMPH # 0.4 10^3/uL (1.5-4.5); LYMPH % 4.1 % (24.0-44.0); MEAN CORPUSCULAR HEMOGLOBIN 29.5 pg (27.0-33.0); MEAN CORPUSCULAR HGB CONC 31.4 g/dl (32.0-36.5); MEAN CORPUSCULAR VOLUME 94.1 fl (80.0-96.0); MONO # 0.8 10^3/uL (0.0-0.8); MONO % 7.1 % (0.0-5.0); NEUTROPHILS # 9.4 10^3/uL (1.8-7.7); NEUTROPHILS % 86.9 % (36.0-66.0); PLATELET COUNT, AUTOMATED 176 10^3/uL (150-450); RED BLOOD COUNT 3.22 10^6/uL (4.00-5.40); RED CELL DISTRIBUTION WIDTH 13.7 % (11.5-14.5); WHITE BLOOD COUNT 10.8 10^3/uL (4.0-10.0)
[2018-02-11 07:01] LABS: ANION GAP 1 MEQ/L (8-16); BLOOD UREA NITROGEN 40 MG/DL (7-18); CALCIUM LEVEL 8.1 MG/DL (8.8-10.2); CARBON DIOXIDE LEVEL 40 MEQ/L (21-32); CHLORIDE LEVEL 101 MEQ/L (98-107); CREATININE FOR GFR 0.86 MG/DL (0.55-1.30); GLOMERULAR FILTRATION RATE > 60.0 (>32); GLUCOSE, FASTING 101 MG/DL (70-100); POTASSIUM SERUM 4.7 MEQ/L (3.5-5.1); SODIUM LEVEL 142 MEQ/L (136-145)
[2018-02-11] MEDS: TIOTROPIUM INHALER/CAPSULE (SPIRIVA) INH (09:22)
[2018-02-11] MEDS: ADVAIR HFA 230/21MCG INHALER INH ×2 (09:22→19:58)
[2018-02-11] MEDS: DIGOXIN 0.0625MG PER 1/2TABLET PO (10:12)
[2018-02-11] MEDS: predniSONE 50 MG TAB PO (10:13)
[2018-02-11] MEDS: FUROSEMIDE 20 MG TAB PO (10:13)
[2018-02-11] MEDS: PANTOPRAZOLE 40MG TAB (PROTONIX) PO (10:13)
[2018-02-11] MEDS: SENOKOT S TAB PO ×2 (10:13→21:08)
[2018-02-11] MEDS: APIXABAN 2.5 MG TAB (ELIQUIS) PO ×2 (10:13→21:09)
[2018-02-11] MEDS: SIMVASTATIN 20 MG TAB PO (21:09)
[2018-02-12] MEDS: LEVALBUTEROL 1.25 MG/0.5 ML CONCENTRATE NEB INH ×7 (04:00→23:01)
[2018-02-12 06:33] LABS: BASO % 0.1 % (0.0-1.0); HEMATOCRIT 31.8 % (36.0-47.0); HEMOGLOBIN 10.1 g/dl (12.0-15.5); IMMATURE GRANULOCYTE % 1.4 % (0-3.0); LYMPH # 0.4 10^3/uL (1.5-4.5); LYMPH % 2.8 % (24.0-44.0); MEAN CORPUSCULAR HEMOGLOBIN 29.9 pg (27.0-33.0); MEAN CORPUSCULAR HGB CONC 31.8 g/dl (32.0-36.5); MEAN CORPUSCULAR VOLUME 94.1 fl (80.0-96.0); MONO # 0.9 10^3/uL (0.0-0.8); MONO % 6.1 % (0.0-5.0); NEUTROPHILS # 12.5 10^3/uL (1.8-7.7); NEUTROPHILS % 89.6 % (36.0-66.0); PLATELET COUNT, AUTOMATED 181 10^3/uL (150-450); RED BLOOD COUNT 3.38 10^6/uL (4.00-5.40); RED CELL DISTRIBUTION WIDTH 13.8 % (11.5-14.5)
[2018-02-12 06:51] LABS: ANION GAP 6 MEQ/L (8-16); BLOOD UREA NITROGEN 40 MG/DL (7-18); CALCIUM LEVEL 8.2 MG/DL (8.8-10.2); CARBON DIOXIDE LEVEL 38 MEQ/L (21-32); CHLORIDE LEVEL 96 MEQ/L (98-107); CREATININE FOR GFR 0.99 MG/DL (0.55-1.30); GLOMERULAR FILTRATION RATE 57.2 (>32); GLUCOSE, FASTING 106 MG/DL (70-100); POTASSIUM SERUM 4.7 MEQ/L (3.5-5.1); SODIUM LEVEL 140 MEQ/L (136-145)
[2018-02-12] MEDS: ADVAIR HFA 230/21MCG INHALER INH ×2 (07:58→20:40)
[2018-02-12] MEDS: TIOTROPIUM INHALER/CAPSULE (SPIRIVA) INH (07:58)
[2018-02-12] MEDS: SENOKOT S TAB PO ×2 (08:57→20:55)
[2018-02-12] MEDS: PANTOPRAZOLE 40MG TAB (PROTONIX) PO (08:57)
[2018-02-12] MEDS: APIXABAN 2.5 MG TAB (ELIQUIS) PO ×2 (08:57→20:59)
[2018-02-12] MEDS: predniSONE 50 MG TAB PO (08:57)
[2018-02-12] MEDS: DIGOXIN 0.0625MG PER 1/2TABLET PO (08:57)
[2018-02-12] MEDS: LORazepam 0.5 MG TAB PO ×3 (09:33→22:20)
[2018-02-12] MEDS: SODIUM CHLORIDE HYPERTONIC 3% 15ML NEB SOL INH (13:46)
[2018-02-12] MEDS: SIMVASTATIN 20 MG TAB PO (20:59)
[2018-02-13 00:38] LABS: HEMATOCRIT 33.1 % (36.0-47.0); HEMOGLOBIN 10.6 g/dl (12.0-15.5); MEAN CORPUSCULAR HEMOGLOBIN 30.3 pg (27.0-33.0); MEAN CORPUSCULAR VOLUME 94.6 fl (80.0-96.0); PLATELET COUNT, AUTOMATED 171 10^3/uL (150-450); RED CELL DISTRIBUTION WIDTH 13.8 % (11.5-14.5)
[2018-02-13 01:28] LABS: ANION GAP 7 MEQ/L (8-16); BLOOD UREA NITROGEN 56 MG/DL (7-18); CALCIUM LEVEL 8.3 MG/DL (8.8-10.2); CARBON DIOXIDE LEVEL 35 MEQ/L (21-32); CHLORIDE LEVEL 98 MEQ/L (98-107); CREATININE FOR GFR 1.29 MG/DL (0.55-1.30); DIGOXIN LEVEL 1.1 NG/ML (0.5-2.0); GLOMERULAR FILTRATION RATE 42.1 (>32); GLUCOSE, FASTING 196 MG/DL (70-100); POTASSIUM SERUM 4.8 MEQ/L (3.5-5.1); SODIUM LEVEL 140 MEQ/L (136-145)
[2018-02-13] MEDS: LEVALBUTEROL 1.25 MG/0.5 ML CONCENTRATE NEB INH ×3 (03:51→11:02)
[2018-02-13] MEDS: TIOTROPIUM INHALER/CAPSULE (SPIRIVA) INH (07:48)
[2018-02-13] MEDS: ADVAIR HFA 230/21MCG INHALER INH (07:48)
[2018-02-13] MEDS: FUROSEMIDE 20 MG TAB PO (08:20)
[2018-02-13] MEDS: predniSONE 50 MG TAB PO (08:20)
[2018-02-13] MEDS: DIGOXIN 0.0625MG PER 1/2TABLET PO (08:20)
[2018-02-13] MEDS: PANTOPRAZOLE 40MG TAB (PROTONIX) PO (08:20)
[2018-02-13] MEDS: SENOKOT S TAB PO (08:21)
[2018-02-13] MEDS: APIXABAN 2.5 MG TAB (ELIQUIS) PO (08:21)
[2018-02-13] MEDS: LORazepam 0.5 MG TAB PO (08:25)
== END 2018-02-13 11:52 | DRG 191 ==
LOC: M MSPAV 01-29 00:38 → M ED 14:51 → M ED INP 21:52
DX: J44.1 Chronic obstructive pulmonary disease with (acute) exacerbation (principal); J96.11 Chronic respiratory failure with hypoxia; I50.42 Chronic combined systolic (congestive) and diastolic (congestive) heart failure; R64 Cachexia; I11.0 Hypertensive heart disease with heart failure; E78.00 Pure hypercholesterolemia, unspecified; Z87.891 Personal history of nicotine dependence; I34.0 Nonrheumatic mitral (valve) insufficiency; Z79.899 Other long term (current) drug therapy; D64.9 Anemia, unspecified; I48.91 Unspecified atrial fibrillation; I27.20 Pulmonary hypertension, unspecified; Z68.20 Body mass index [BMI] 20.0-20.9, adult; E87.5 Hyperkalemia

== ENCOUNTER → 2018-02-18 | Outpatient (REF) ==
[2018-02-18 09:34] LABS: HEMATOCRIT 27.5 % (36.0-47.0); HEMOGLOBIN 8.6 g/dl (12.0-15.5); MEAN CORPUSCULAR VOLUME 96.5 fl (80.0-96.0); RED BLOOD COUNT 2.85 10^6/uL (4.00-5.40); WHITE BLOOD COUNT 7.4 10^3/uL (4.0-10.0)
[2018-02-18 09:35] LABS: MEAN CORPUSCULAR HEMOGLOBIN 30.2 pg (27.0-33.0); MEAN CORPUSCULAR HGB CONC 31.3 g/dl (32.0-36.5); PLATELET COUNT, AUTOMATED 106 10^3/uL (150-450); RED CELL DISTRIBUTION WIDTH 14.8 % (11.5-14.5)
[2018-02-18 09:51] LABS: ALBUMIN 2.3 GM/DL (3.2-5.2); ALBUMIN/GLOBULIN RATIO 0.82 (1.00-1.93); ALKALINE PHOSPHATASE 80 U/L (45-117); ALT/SGPT 37 U/L (12-78); ANION GAP 5 MEQ/L (8-16); AST/SGOT 24 U/L (7-37); BILIRUBIN,TOTAL 0.3 MG/DL (0.2-1.0); BLOOD UREA NITROGEN 33 MG/DL (7-18); CARBON DIOXIDE LEVEL 32 MEQ/L (21-32); CHLORIDE LEVEL 104 MEQ/L (98-107); CREATININE FOR GFR 0.82 MG/DL (0.55-1.30); GLOMERULAR FILTRATION RATE > 60.0 (>32); GLUCOSE, FASTING 93 MG/DL (70-100); IRON (FE) 44 UG/DL (50-170); SODIUM LEVEL 141 MEQ/L (136-145); TOTAL PROTEIN 5.1 GM/DL (6.4-8.2)
== END ==
LOC: SKLAB2 07:00
DX: D64.9 Anemia, unspecified (principal)

== ENCOUNTER 2018-02-19 23:38 | Emergency (ER) | payer MEDICARE, OTHER | END 2018-02-20 02:35 | disposition E | LOC: M ED 23:38 | DX: Z51.5 Encounter for palliative care; Z79.899 Other long term (current) drug therapy | CPT/HCPCS: 99284 ==